=== PATIENT | male | born 1985 | race African-American/Black ===

== ENCOUNTER 2019-02-27 06:50 | Emergency (ER) | payer OTHER, SELFPAY ==
[2019-02-27 06:52] VITALS: BP 143/76; PULSE 72; RESP 16; TEMP 37.1; O2SAT 99; BMI 38.1
--- NOTE | 2019-02-27 07:32 | ED.VIS.LOWEX ---
History of Present Illness Chief Complaint: Wound Informant: Patient Onset: Weeks - Discomfort started 1 week ago. Presents with swelling and pain left prepatellar region. States he expressed pus. Reports concerned because of discoloration inferior and medial to the left pre-patella region and discomfort along the abductor canal. Context: Sudden Onset Timing: Continuous Quality of Pain: Dull Location: Left pre-patella Current Severity: Mild Maximum Severity: Moderate Worsened by: Pressure Relieved by: Nothing Associated Symptoms: Negative for: Parasthesia, Weakness, Loss of Funtion Narrative: Patient is a healthy 33-year-old male with no cervical medical problems and no history of allergies to medication who presents with pain and swelling left knee. He localizes the discomfort and swelling to the left prepatellar region. He states he expressed pus from the area today. He reports subjective fever with chills. He denies history rheumatic fever, murmur, SB he is concerned because of discomfort that he localizes left abductor canal region and discoloration inferior to the area of swelling medial proximal tibial region. E or IV drug use. Is not immune suppressed. He denies history of trauma. He has not done any type of activity or work on his knees. Tetanus Immunization: 5-10 years Prior similar symptoms: No Recent Illness/Hospitalization: No - Past Medical History (1) No significant past medical history Status: Acute Past Medical History - Allergies and Home Meds Allergies/Adverse Reactions: Allergies No Known Allergies Allergy (Verified 02/27/19 06:51) Primary Care Physician: Deepti Spence,Out of [NON-STAFF] - Prior records reviewed: No Past Medical History: None Surgical History: no surgical history Lives: Alone Smoking Status: Never smoker Drugs: None Review of Systems General: Reports: Chills, Fever, Subjective. Denies: Malaise, Sweats Cardiovascular: Denies: Chest pain, Palpitations, Heart racing Respiratory: Denies: Dyspnea, Dyspnea on exertion Gastrointestinal: Denies: Nausea, Vomiting Genitourinary: Denies: Dysuria, Hematuria, Frequency, -, - Musculoskeletal: Reports: Swelling - Left prepatellar region, Extremity Pain - Left knee. Denies: Myalgias, Arthralgias, Neck pain, Back pain, -, - Skin: Reports: Rash, Abscess, Wounds Neurological: Denies: Weakness, Parasthesia, Numbness Hematologic: Denies: Easy bruising, Easy bleeding Physical Exam Vital Signs/Narrative: Vital Signs Temp Pulse Resp BP Pulse Ox 02/27/19 06:52 98.7 F 72 16 143/76 H 99 Inital Vital Signs reviewed: Yes - Extremity Exam Left Pelvis: Negative for: Abrasion, Contusion, Deformity, Edema, Hematoma, Limited ROM, - - There is shotty tender left inguinal nodes on palpation Left Hip: Negative for: Abrasion, Contusion, Deformity, Edema, Hematoma, Limited ROM, - Left Femur: Negative for: Abrasion, Contusion, Deformity, Edema, Hematoma, Limited ROM, - - There is pain palpation along the abductor canal. There is no palpable mass or palpable cord. Left Knee: Negative for: Abrasion, Contusion, Deformity, Edema, Hematoma, Limited ROM, - - There is warmth, induration and fluctuant in the prepatellar region. There is no lymphangitis. There is no popliteal lymphadenopathy. Left Tib Fib: Negative for: Abrasion, Contusion, Deformity, Edema, Hematoma, Limited ROM, - - There is slight discoloration proximal medial left tibial region. Left Ankle: Negative for: Abrasion, Contusion, Deformity, Edema, Hematoma, Limited ROM, - Left Foot: Negative for: Abrasion, Contusion, Deformity, Edema, Hematoma, Limited ROM, - - DP and PT pulses are palpable. General: Well nourished, Well developed Head: Normocephalic, Atraumatic Eyes: Perrl, EOMI. Negative for: Pale conjunctiva Neck: - - Trachea is midline. Neck is supple. Cardiovascular: Regular rate, Regular rhythm, No murmurs, Normal S1, Normal S2 Respiratory: No distress, CTA bilaterally, Chest nontender Skin: Normal color, Rash - There is slight erythema left prepatellar region with either a subcutaneous abscess or free patella septic bursa. Neurological: Alert, Oriented x3, Cranial nerves II-XII grossly intact, Normal Strength, Normal Sensation. Negative for: Normal Gait Psychological: Normal affect Diagnostic/Tx/Re-eval Laboratory Results 02/27/19 02/27/19 07:20 07:20 WBC 8.6 RBC 5.32 Hgb 15.9 Hct 47.0 MCV 88.3 MCH 29.9 MCHC 33.8 RDW 12.9 RDW Differential 41.6 Plt Count 209 MPV 10.2 Immature Gran % (Auto) 0.200 Neut % (Auto) 64.9 Lymph % (Auto) 22.6 [place] % (Auto) 10.3 H Eos % (Auto) 1.7 Baso % (Auto) 0.3 Absolute Neuts (auto) 5.6 Absolute Lymphs (auto) 1.95 Total Counted Not Reportable Sodium 140 Potassium 4.0 Chloride 105 Carbon Dioxide 28.0 Anion Gap 7 BUN 12 Creatinine 1.33 H Estim Creat Clear Calc 79.74 Est GFR (MDRD) Af Amer 80 Est GFR (MDRD) Non-Af 66 BUN/Creatinine Ratio 9.0 L Glucose 104 Calcium 8.8 - Medical Decision Making Because patient complains of subjective fever and chills and symptoms have been greater than 1 week will obtain CBC, BMP. Patient was informed that treatment is incision and drainage. He asked questions regarding high I believed he needed incision and drainage. I explained to him why. He understands. Consent was obtained for I&D of subcutaneous abscess versus septic pre-patella bursa. Read procedure note. Patient's creatinine is elevated. He denies use of any supplements. 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 Since he does not a primary care physician he was referred to Dr. Mariza Perez. He has not seen orthopedic in town. He is referred to Dr. Munroe. Procedures Procedure(s): Patient was consented for I&D of prepatellar subcutis abscess versus prepatellar septic bursitis. Patient's questions were answered to his satisfaction. He signed consent form. Patient was prepped draped sterile manner. The area was anesthetized by local infiltration and field block. Incision was made using a 10 blade. Blunt dissection was undertaken. Significant amount of purulent material flowed from the incision site. The cavity was irrigated. Additional purulent material was expressed from the wound site. The cavity was irrigated again. 1/4 inch new gauze was placed as a wick. The incision site was dressed. He received first dose of antibiotic in the emergency department as well as opiate analgesia. He was discharged home with prescription for cephalexin, Bactrim and [place]. ED Disposition - Plan for ED Patient: Disposition: Home or Assisted Living Diagnosis: Septic prepatellar bursitis of left knee Instructions: ED Abscess IandD Prescriptions: Hydrocodone Bitart/Apap 5-325 [[place] 5MG-325MG] 1 tablet PO Q4H PRN PRN 2 Days #10 tablet PRN Reason: Pain Smz/Tmp Ds [Bactrim Ds] 1 tablet PO BID #14 tablet Cephalexin [Keflex] 500 mg PO 4X/DAY #28 capsule Referrals: [facility] Doctor,Out of [NON-STAFF] - Mariza Perez DO [STAFF PHYSICIAN] - 1-2 Weeks Alexander Avery DO [STAFF PHYSICIAN] - 2 Days for wound check Additional Instructions: If you are unable to be seen in 2 days for wound check please return to the emergency department for reevaluation.
[2019-02-27 07:37] LABS: Absolute Lymphocyte Count 1.95 X10^3/ul (0.83-4.51); Absolute Neutrophil Count 5.6 X10^3/uL (2.0-7.7); Basophil# 0.03 X10^3/uL; Basophil% 0.3 % (0-1); Eosinophil# 0.15 X10^3/uL; Eosinophils% 1.7 % (0-5); Hemoglobin 15.9 g/dl (13.0-16.5); Lymphocyte # 1.95 X10^3/ul (4.0); Lymphocyte % 22.6 % (19-41); Mean Corp Hgb Conc 33.8 g/gl (32-36); Mean Corpuscular Hgb 29.9 pg (27.0-32.0); Mean Corpuscular Volume 88.3 fL (80-94); Mean Platelet Vol. 10.2 fl (6.2-12.0); Monocyte# 0.89 X10^3/uL; Monocyte% 10.3 % (0-10); Neutrophil # 5.58 X10^3/uL (2.7-7.7); Neutrophil % 64.9 % (47-70); Platelet Count 209 K/mm3 (150-450); RBC Distribution Width CV 12.9 % (11.6-14.6); RBC Distribution Width SD 41.6 fl (35.1-43.9); Red Blood Count 5.32 M/mm3 (4.6-6.2); White Blood Count 8.6 K/mm3 (4.4-11.0)
[2019-02-27 07:42] LABS: POSITIVE COUNT NO; POSITIVE DIFFERENTIAL NO; POSITIVE MORPHOLOGY NO
[2019-02-27 07:55] LABS: Anion Gap 7 (5-15); BUN 12 mg/dL (7-18); Calcium,Total 8.8 mg/dL (8.5-10.1); Chloride 105 mmol/L (98-107); Creatinine, Serum 1.33 mg/dL (0.70-1.30); EST Glomerular Filtration Rate 66 mL/min (>60); Est Glom Filt Rate - Afr Amer 80 mL/min (>60); Estimated Creatinine Clearance 79.74 ml/min; Glucose 104 mg/dL (74-106); Sodium Level 140 mmol/L (136-145)
[2019-02-27] MEDS: Smz/Tmp Ds Tablet 1 TABLET PO (08:40)
[2019-02-27] MEDS: HYDROcodone Bitartrate/Apap 5/325 Tablet PO (08:40)
[2019-02-27] MEDS: Cephalexin 250 MG Capsule 500 MG PO (08:41)
[2019-02-27 09:00] VITALS: BP 136/78; PULSE 85; RESP 16; O2SAT 98
== END 2019-02-27 09:01 | disposition home or self-care (01) ==
PROVIDERS: Emergency Provider Emergency Medicine
DX: M70.42 Prepatellar bursitis, left knee (principal)
CPT/HCPCS: 27301; 10060; 80048; 85025; 99284

== ENCOUNTER 2019-03-01 17:00 | Emergency (ER) | payer OTHER, SELFPAY ==
[2019-03-01 17:01] VITALS: BP 139/72; PULSE 63; RESP 16; TEMP 37.1; O2SAT 99; BMI 38.4
--- NOTE | 2019-03-01 17:19 | US_ITS ---
STUDY: VENOUS DOPPLER ULTRASOUND - LEFT LOWER EXTREMITY REASON FOR EXAM: Male, 33 years old. Left leg swelling. TECHNIQUE: Ultrasound evaluation of the deep vein system to include mcdaniel-scale imaging and compression was performed. Mcdaniel-scale imaging and Doppler sonographic evaluation, including duplex spectral analysis and qualitative color flow sonography, was performed. COMPARISON: None. FINDINGS: Common Femoral Vein: Normal compression, spontaneity and augmentation. Normal color Doppler. Common Femoral Vein/Greater Saphenous Junction: Normal compression. Femoral Proximal: Normal compression. Femoral Middle: Normal compression, spontaneity and augmentation. Normal color Doppler. Femoral Distal: Normal compression, spontaneity and augmentation. Normal color Doppler. Popliteal Vein: Normal compression, spontaneity and augmentation. Normal color Doppler. Posterior Tibial Vein: Normal compression. Peroneal Vein: Normal compression. There is no demonstrated deep venous thrombosis. US/Venous Duplex Imag/Limited/Uni IMPRESSION: No sonographic evidence for deep venous thrombosis of the left common femoral, superficial femoral or popliteal veins. Electronically Signed: Viki Dash MD at 18:45 EDT , Service support ,
--- NOTE | 2019-03-01 18:37 | ED.DCSUM_ITS ---
- ER Visit Summary Date of Service: 03/01/19 Chief Complaint: Left knee wound History of Present Illness: The patient is a 33 M who was seen 2 days ago for swelling and pain to the left anterior knee. He had an I&D and packing placed for cutaneous abscess. Patient states the pain is improving. He has an appointment with orthopedics tomorrow. He still has pain in the medial thigh and lower leg and states his lower leg was swollen last evening. He feels the skin is slightly red. He states this was not adequately addressed on his last visit so he came back in. Physical Examination: Vital signs are unremarkable. Patient sitting upright in bed no acute distress. Left lower extremity examination reveals left anterior knee wound with packing in place. There is no surrounding fluctuance or drainage. He has mild muscular tenderness along the medial left thigh and lower leg. There is no significant edema at this time. There might be slight erythema to the skin. There is no tenderness at the joint line of the knee or evidence of effusion. Test Results: Venous ultrasound reveals no evidence of DVT. Emergency Department Course and Treatment: Test results discussed with the patient. He requested packing be removed. Anterior knee wound is cleansed and packing is removed. Dressing is applied. I encouraged patient to follow-up with orthopedics tomorrow as scheduled. Treatment Plan: [] Disposition: Discharge Impression: Left knee wound check with resolving infection This note was generated with [employer] dictation software. It may contain incorrect words, spelling, and punctuation that were not noted in review of the chart prior to signing ED Disposition - Plan for ED Patient: Disposition: Home or Assisted Living Instructions: ED Wound Care Referrals: Alexander Avery DO [STAFF PHYSICIAN] - Keep [facility] appointment
== END 2019-03-01 18:41 | disposition home or self-care (01) ==
PROVIDERS: Emergency Provider Emergency Medicine
DX: Z48.01 Encounter for change or removal of surgical wound dressing (principal); M79.89 Other specified soft tissue disorders
CPT/HCPCS: 93971; 99282

== ENCOUNTER 2020-02-08 06:53 | Emergency (ER) | payer OTHER, SELFPAY ==
[2020-02-08 06:54] VITALS: BP 131/78; PULSE 74; RESP 20; TEMP 36.9; O2SAT 98; BMI 36.9
[2020-02-08 06:56] VITALS: BP 131/78; PULSE 74; RESP 20; TEMP 36.9; O2SAT 98
--- NOTE | 2020-02-08 07:16 | ED.VIS.GEN ---
History of Present Illness Chief Complaint: Cough Informant: Patient Narrative: Patient states that a week ago last Thursday he developed some abdominal cramping and body aches. He also developed fever up to 102 as well as sore throat. He had nausea but no vomiting. States he has had some diarrhea like movements but not very often. Decreased p.o. on the current past week. On Thursday he developed runny nose cough. Nose is been mostly clear but now has had blood in it. Cough is nonproductive. He has had a relatively lack of appetite. He woke this morning with sweats and again with fever. Continues to have sore throat but states it is somewhat better. No rashes. He has been in urgent care twice initially diagnosed with flu second visit had a chest x-ray performed. This was reported as negative. Past Medical History - Allergies and Home Meds Allergies/Adverse Reactions: Allergies No Known Allergies Allergy (Verified 02/27/19 06:51) Primary Care Physician: David Jacob MD [STAFF PHYSICIAN] - (as needed for primary care) Surgical History: no surgical history Smoking Status: Never smoker Review of Systems General: Reports: Chills, Fever, Malaise, Sweats Eyes: Denies: Visual changes - bilaterally, Diplopia ENT: Reports: Rhinorrhea, Sore throat Cardiovascular: Denies: Chest pain, Palpitations Respiratory: Reports: Cough. Denies: Dyspnea, Dyspnea on exertion Gastrointestinal: Reports: Abdominal pain, Nausea, Diarrhea. Denies: Vomiting, Melena, Hematochezia Genitourinary: Denies: Dysuria, Hematuria, Frequency Musculoskeletal: Reports: Myalgias. Denies: Back pain, Extremity Pain Skin: Denies: Rash, Wounds Neurological: Reports: Headache. Denies: Weakness, Numbness Physical Exam Vital Signs/Narrative: Vital Signs Temp Pulse Resp BP Pulse Ox 02/08/20 06:56 98.4 F 74 20 H 131/78 H 98 02/08/20 06:54 98.4 F 74 20 H 131/78 H 98 Inital Vital Signs reviewed: Yes General: Well nourished, Well developed, No Acute Distress Head: Normocephalic, Atraumatic Eyes: Perrl, EOMI ENT: Moist mucous membranes, - - Friable anterior plexus mucosa with clear rhinorrhea scant blood noted. The posterior pharynx is erythematous Neck: Supple, Nontender, - - Anterior and posterior lymph nodes mildly tender. Negative for: No lymphadenopathy - Frequent dry cough especially with deep inspiration Cardiovascular: Regular rate, Regular rhythm, No murmurs Respiratory: No distress, CTA bilaterally, Chest nontender Abdomen: Soft, Nontender, Nondistended, Normal bowel sounds Back: Nontender, Normal Inspection Extremities: Nontender, No edema Skin: Normal color, No rash Neurological: Alert, Oriented x3, Cranial nerves II-XII grossly intact, Normal Strength, Normal Sensation Psychological: Normal affect, Normal Mood Diagnostic/Tx/Re-eval - Medical Decision Making Patient's white blood cell count is still normal in the differential includes a higher amount of monocytes and lymphocytes. Monospot is negative. Influenza negative and rapid strep is negative. His chest x-ray was obtained and reviewed. Radiologist comments include minimal hazy airspace disease but no focal airspace opacities. Patient is now had fever for the start of his eighth day. He still has pharyngeal erythema and cough. Will place him on azithromycin and given a dose of oral Decadron. Continued oral hydration and rest. Return if worsening or concerns follow-up with primary care ED Disposition - Plan for ED Patient: Disposition: Home or Assisted Living Diagnosis: Pharyngitis, Bronchitis Instructions: BRONCHITIS, Antiobiotic Treatment (Adult) Prescriptions: Azithromycin 500 mg PO DAILY #5 tab Transmission Status: Pending to [facility] Referrals: David Jacob MD [STAFF PHYSICIAN] - (as needed for primary care)
--- NOTE | 2020-02-08 07:45 | RAD_ITS ---
STUDY: X-RAY CHEST REASON FOR EXAM: Male, 34 years old. COUGH AND FEVER; -- DX WITH FLU 1 WEEK AGO TECHNIQUE: PA and lateral views of the chest. COMPARISON: September 06, 2015. FINDINGS: Cardiac silhouette unremarkable. Increased bronchovascular markings. Aorta unremarkable. No focal patchy airspace opacities. No pleural effusions. Minimal hazy airspace disease. Upper abdomen unremarkable. Osseous structures intact. No pneumothorax. RAD/Chest PA and Lateral IMPRESSION: Reactive airway disease/viral infection Mild congestion Electronically Signed: David Bradshaw DO at 8:16 EDT Tel , Service support ,
[2020-02-08 07:51] LABS: Absolute Neutrophil Count 2.7 X10^3/uL (2.0-7.7); Basophil# 0.07 X10^3/uL; Eosinophils% 2.8 % (0-5); Hemoglobin 15.8 g/dL (13.0-16.5); Lymphocyte % 46.3 % (19-41); Mean Corp Hgb Conc 32.2 g/dL (32-36); Mean Corpuscular Hgb 28.7 pg (27.0-32.0); Mean Corpuscular Volume 89.1 fL (80-94); Mean Platelet Vol. 9.4 fl (6.2-12.0); Monocyte# 0.78 X10^3/uL; Monocyte% 10.9 % (0-10); NRBC Flagged by Analyzer 0 % (0-5); Neutrophil # 2.67 X10^3/uL (2.7-7.7); Neutrophil % 37.5 % (47-70); POSITIVE MORPHOLOGY YES; Platelet Count 223 K/mm3 (150-450); RBC Distribution Width CV 13.1 % (11.6-14.6); RBC Distribution Width SD 42.8 fl (35.1-43.9); White Blood Count 7.1 K/mm3 (4.4-11.0)
[2020-02-08 07:53] LABS: Anion Gap 3 (5-15); BUN 11 mg/dL (7-18); BUN/Creat Ratio 8.8 RATIO (10-20); Calcium,Total 8.6 mg/dL (8.5-10.1); Chloride 106 mmol/L (98-107); Creatinine, Serum 1.25 mg/dL (0.70-1.30); EST Glomerular Filtration Rate 70 mL/min (>60); Est Glom Filt Rate - Afr Amer 85 mL/min (>60); Estimated Creatinine Clearance 84.05 ml/min; Glucose 98 mg/dL (74-106); Sodium Level 140 mmol/L (136-145)
[2020-02-08 07:55] LABS: Differential Indicated SCAN CRITERIA MET
[2020-02-08 08:05] LABS: Internal QC Validated? YES +Cl - CLEAR BKGD; Monotest Negative (Negative)
[2020-02-08 08:22] LABS: Atypical Lymphocyte 2+ %; Platelet Estimate ADEQUATE (ADEQ); Red Cell Morphology NORM C+C NORMAL (NORM C&C)
--- NOTE | 2020-02-08 08:26 | ED.RN ---
Addendum entered by Meggan Shay 02/08/20 08:27: error, documentation regarding wedding ring on wrong pt. Original Note: Wedding ring given to Roni, who is in the waiting room.
[2020-02-08] MEDS: dexAMETHasone 10 MG/ML Vial PO.IVFORM (08:38)
[2020-02-08 08:42] VITALS: PULSE 97; RESP 18; O2SAT 97
[2020-02-09 10:02] LABS: Pathologist Review Reviewed
--- NOTE | 2020-02-10 09:57 | ED.RN ---
Lab reported positive strep. Dr Stevenson made aware. No need for any additional prescriptions. Pt was notified via phone of positive strep and informed of the importance to complete entire prescription. Pt verbalized understanding and reports he is feeling much better.
== END 2020-02-08 08:43 | disposition home or self-care (01) ==
PROVIDERS: Emergency Provider Emergency Medicine
DX: J40 Bronchitis, not specified as acute or chronic (principal); J02.9 Acute pharyngitis, unspecified; R19.7 Diarrhea, unspecified
CPT/HCPCS: 71046; 80048; 85025; 86308; 87077; 87804; 87880; 99284; A4216

== ENCOUNTER 2021-05-16 11:07 | Emergency (ER) | payer MEDICAID, SELFPAY ==
[2021-05-16 11:08] VITALS: BP 130/85; PULSE 110; RESP 18; TEMP 36.2; O2SAT 97; BMI 39.1
--- NOTE | 2021-05-16 11:15 | EDS_ITS ---
HPI History of Present Illness Chief Complaint: Lower Extremity Injury Informant: patient Onset/Context/Timing Onset: Today Timing: Continuous Current Severity: Moderate Maximum Severity: Moderate Narrative Narrative: The patient is a 36-year-old male no significant medical history the presents to the emergency department with left heel injury. Patient states that he had a partially torn Achilles when he is in college. He did not require surgery. He did extensive rehab. States has been doing well. Today, he was running with his daughter. They were running up a hill. He states he planted and felt something pop in the back of his leg and fell to the ground. Since that time, he had difficulty flexing at the ankle. He did not strike his head. He denies other injury. Prior similar symptoms: Yes Recent Illness/Hospitalization: No PFSH PFSH Home Medications hydrocodone-acetaminophen 1 tab PO Q6H PRN PRN 3 Days #10 tablet 05/16/21 [Rx Last Taken Unknown] Allergy/AdvReac Type Severity Reaction Status Date / Time No Known Allergies Allergy Verified 05/16/21 11:07 Social History Smoking Status: Never smoker ROS ROS ED Constitutional Constitutional ED: Denies chills or fever(s) Eyes Eyes: Denies blurry vision or change in vision ENT ENT ED: Denies ear pain or sore throat Cardiovascular Cardiovascular: Denies chest pain or palpitations Respiratory/Chest Respiratory/Chest: Denies cough, dyspnea or dyspnea on exertion Gastrointestinal Gastrointestinal: Denies abdominal pain, nausea or vomiting Genitourinary Genitourinary ED: Denies dysuria or urinary frequency Musculoskeletal Musculoskeletal: Denies arthralgias or myalgias Integumentary Denies rash Neurologic Neurologic: Denies headache(s) or paresthesias Psychiatric Psychiatric: Denies anxiety or depression Endocrine Endocrinology: Denies polydipsia or polyuria Allergic/Immunologic Allergic/Immunologic ED: Denies urticaria EXAM Physical Exam Const Vital Signs: 05/16/21 11:08 Temperature 97.1 F L Temperature Source Temporal Pulse Rate 110 H Respiratory Rate 18 Blood Pressure 130/85 H Blood Pressure Mean 100 Pulse Ox 97 Oxygen Delivery Method Room Air Positive well nourished and well developed General Appearance ED: well developed HEENT Reports normocephalic, head/scalp atraumatic and moist mucous membranes Eyes PERRL and EOMs intact bilaterally Neck no lymphadenopathy and supple General: Negative for tenderness Chest Wall inspection of chest normal Resp normal respiratory effort and clear to auscultation bilaterally Cardio regular rate, regular rhythm and no murmurs GI normal to inspection, nondistended, normoactive bowel sounds Palpation: Negative for tender, guarding or rebound tenderness present Back/Spine no CVA tenderness Cervical Spine: Negative for cervical spine tenderness Thoracic Spine / Upper Back: Negative for thoracic spinal tenderness Extremity normal to inspection Extremity Narrative: Patient does have mild tenderness along the insertion of the Achilles. There is no definitive disruption. I am able to squeeze the calf and recreate some plantar flexion of the foot. General Extremety ED: Negative for tenderness Neuro oriented x3 and CN's II-XII intact bilaterally Neuro Narrative: No focal deficits appreciated. Sensorium / Orientation: alert Psych mental status grossly normal Skin no rashes or lesions noted, no wounds and skin turgor normal MDM MDM MDM Narrative Medical decision making narrative: Patient presents with pain in his Achilles tendon. He is still able to dorsiflex and does have some plantar flexion with compression. He has a history of partial rupture. I did obtain plain films. These are reviewed by both myself and the radiologist. There is no evidence of fracture dislocation of the ankle joint. Clinically, I do feel that he likely has a partial rupture. I am going to place him in a boot orthosis, given cru tches, and counseled him on being strict nonweightbearing as he could take a partial rupture and a complete rupture. He is comfortable with this plan of care. He will be given outpatient orthopedic follow-up and will be discharged home. Impression 1. Partial rupture left Achilles Discharge Plan Triage Chief Complaint: Lower Extremity Injury ED Provider: Nile Adorno Dx/Rx/DC Orders Instructions: ED Tendon Rupture Achilles Prescriptions: New hydrocodone-acetaminophen [hydrocodone-acetaminophen] 1 TABLET tablet 1 tab PO Q6H PRN PRN (Reason: Pain) 3 Days Qty: 10 RF: 0 Primary Care Provider: Care Physician,No Primary Referrals: Alexander Avery DO [STAFF PHYSICIAN] - 1-2 Days if not improving Care Physician,No Primary [Primary Care Provider] -
--- NOTE | 2021-05-16 11:30 | RAD_ITS ---
STUDY: X-RAY - LEFT ANKLE REASON FOR EXAM: Male, 36 years old. Fall. Pain. TECHNIQUE: 3 view(s) of the ankle. COMPARISON: None. FINDINGS: Normal visualized distal tibia and fibula. Normal medial and lateral malleoli. Normal tibiotalar articulation and ankle mortise. Normal visualized talus and calcaneus. The visualized subtalar, talonavicular, calcaneocuboid and tarsal articulations are normal. The soft tissue structures are unremarkable. RAD/Ankle min 3 Views IMPRESSION: Normal x-ray examination of the ankle. Electronically Signed: Valerio Soria MD at 12:18 EDT , Service support ,
== END 2021-05-16 12:28 | disposition home or self-care (01) ==
LOC: ED 11:52
PROVIDERS: Emergency Provider Emergency Medicine
DX: S86.012A Strain of left Achilles tendon, initial encounter (principal); X58.XXXA Exposure to other specified factors, initial encounter; Y93.02 Activity, running; Y92.9 Unspecified place or not applicable
CPT/HCPCS: 73610; 99284

== ENCOUNTER 2021-10-17 07:03 | Emergency (ER) | payer OTHER, MEDICAID, SELFPAY ==
[2021-10-17 07:04] VITALS: BP 132/70; PULSE 81; RESP 18; TEMP 36.3; O2SAT 98; BMI 41.0
--- NOTE | 2021-10-17 07:13 | EKG12_ITS ---
Test Reason : NUMBNESS Blood Pressure : / mmHG Vent. Rate : 064 BPM Atrial Rate : 064 BPM P-R Int : 130 ms QRS Dur : 086 ms QT Int : 404 ms P-R-T Axes : 019 -15 005 degrees QTc Int : 416 ms Normal sinus rhythm Normal ECG Confirmed by SANTI AYON, VLADIMIR ([id number]), cork grinder OTONIEL DUMONT ([id number]) on 10/18/2021 1:54:56 P M Referred By: DIANE Confirmed By:VIOLETA HANCOCK MD
--- NOTE | 2021-10-17 07:14 | EX.ED.DYSGE1 ---
HPI History of Present Illness Chief Complaint: Numb/Ting Narrative Narrative: Patient presents with numbness and tingling in his fourth and fifth digit and pain in his arm from the elbow down on the ulnar side. This started today when he woke up. He has no chest pain or shortness of breath he has no shoulder pain. He has no upper back pain. No neck pain. No cough or congestion. He is complaining of 2 to 3-month history of bilateral paraspinal lumbar back pain which is worse in the morning and worse with movement. No urinary symptoms, no testicular pain. He has no abdominal pain nausea vomiting or diarrhea. No pain with urination or bowel movement. PFSH PFSH Home Medications prednisone 50 mg PO DAILY #5 tab 10/17/21 [Rx Last Taken Unknown] Allergy/AdvReac Type Severity Reaction Status Date / Time No Known Allergies Allergy Verified 10/17/21 07:03 Social History Smoking Status: Never smoker ROS ROS ED ROS Narrative Past medical history: None Medications: None Social history: Noncontributory Review of systems: All systems negative except as indicated General: No fever Eyes: No visual changes ENT: No upper airway congestion, normal voice Neck: No neck pain Cardiovascular: No chest pain Respiratory: No shortness of breath or cough Gastrointestinal: No abdominal pain, nausea vomiting or diarrhea Genitourinary: No dysuria Musculoskeletal: Left arm pain as in HPI Back: As in HPI Skin: No rash Neurological: No memory loss, confusion or any focal weakness Psych: No recent behavioral changes Hematologic: No easy bleeding or easy bruising EXAM Physical Exam Narrative Exam Narrative: Physical exam General: Well nourished, Well developed, No Acute Distress Head: Normocephalic, Atraumatic Eyes: Conjunctiva not pale ENT: Moist mucous membranes Neck: Supple, Nontender, No lymphadenopathy Cardiovascular: Regular rate, Regular rhythm Respiratory: No distress, CTA bilaterally Abdomen: Soft, Nontender, Nondistended Back: Patient does not have CVA tenderness his pain is lower in the paraspinal muscle region. It is bilateral. No rash or deformity seen. He seems comfortable when I palpate in that region. No spinal tenderness on palpation. Extremities: Patient has normal strength and sensation in his left upper extremity, I can recreate his paresthesias by pressing in the ulnar groove of the elbow. He is describing an ulnar distribution of symptoms down his forearm and into his fourth and fifth digits. Skin: Normal color, No rash Neurological: Alert, Normal Strength, Normal Sensation Psychological: Normal affect Const Vital Signs: 10/17/21 07:04 Temperature 97.4 F L Temperature Source Temporal Pulse Rate 81 Respiratory Rate 18 Blood Pressure 132/70 H Blood Pressure Mean 90 Pulse Ox 98 Oxygen Delivery Method Room Air MDM MDM MDM Narrative Medical decision making narrative: Patient has an obvious ulnar radiculopathy but I did blood work to make sure there is no cardiac component. I also did a lumbar spine x-ray which is unremarkable. I had a long conversation about what he may be doing to cause the ulnar neuropathy, we went over any kind of repetitive motion with the elbow or any other kind of trauma and he does not know any. I urged him to be mindful of what he is doing in the next few days the could cause this in the meantime I believe it is reasonable to put him on a short dose of steroids. As far as the back this is likely paraspinal strain, he can follow-up with PCP or get physical therapy for this. Lab Data Labs: Laboratory Results - last 24 hr 10/17/21 10/17/21 07:21 07:21 WBC 5.6 RBC 5.49 Hgb 15.8 Hct 47.3 MCV 86.2 MCH 28.8 MCHC 33.4 RDW Std Deviation 38.6 RDW Coeff of Gala 12.3 Plt Count 241 MPV 10.0 Immature Gran % (Auto) 0.400 Neut % (Auto) 44.8 L Lymph % (Auto) 42.1 H [place] % (Auto) 9.9 Eos % (Auto) 2.3 Baso % (Auto) 0.5 Absolute Neuts (auto) 2.5 Absolute Lymphs (auto) 2.35 Nucleated RBC % 0 Sodium 138 Potassium 3.7 Chloride 106 Carbon Dioxide 27.0 Anion Gap 5 BUN 16 Creatinine 1.29 Estim Creat Clear Calc 79.93 Est GFR (MDRD) Af Amer 81 Est GFR (MDRD) Non-Af 67 BUN/Creatinine Ratio 12.4 Glucose 107 H Calcium 8.8 Total Bilirubin 0.60 AST 16 ALT 29 Alkaline Phosphatase 88 Troponin I High Sens 6 Total Protein 7.8 Albumin 3.6 Globulin 4.2 Albumin/Globulin Ratio 0.9 Radiography Diagnostic Testing: Clinical Impression(s) from Imaging Studies Lumbar Spine X-Ray 10/17/21 07:52 IMPRESSION: Loss of the normal lumbar lordosis. Mild degree of disc space narrowing at the L5-S1 level. 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 Prescriptions: New prednisone 50 mg tablet 50 mg PO DAILY Qty: 5 RF: 0 Primary Care Provider: Care Physician,No Primary Referrals: Care Physician,No Primary [Primary Care Provider] - 2 Days Disposition Disposition: Home, Self Care
[2021-10-17 07:31] LABS: Absolute Lymphocyte Count 2.35 X10^3/uL (0.83-4.51); Absolute Neutrophil Count 2.5 X10^3/uL (2.0-7.7); Basophil# 0.03 X10^3/uL; Basophil% 0.5 % (0-1); Eosinophil# 0.13 X10^3/uL; Eosinophils% 2.3 % (0-5); Hematocrit 47.3 % (40-54); Hemoglobin 15.8 g/dL (13.0-16.5); Lymphocyte # 2.35 X10^3/ul (0.83-4.51); Lymphocyte % 42.1 % (19-41); Mean Corp Hgb Conc 33.4 g/dL (32-36); Mean Corpuscular Hgb 28.8 pg (27.0-32.0); Mean Corpuscular Volume 86.2 fL (80-94); Monocyte# 0.55 X10^3/uL; Monocyte% 9.9 % (0-10); NRBC Flagged by Analyzer 0 % (0-5); Neutrophil % 44.8 % (47-70); Platelet Count 241 K/mm3 (150-450); RBC Distribution Width CV 12.3 % (11.6-14.6); RBC Distribution Width SD 38.6 fl (35.1-43.9); Red Blood Count 5.49 M/mm3 (4.6-6.2); White Blood Count 5.6 K/mm3 (4.4-11.0)
--- NOTE | 2021-10-17 07:52 | RAD_ITS ---
STUDY: X-RAY - LUMBAR SPINE REASON FOR EXAM: Male, 36 years old. Chronic back pain. TECHNIQUE: 3 view(s) of the lumbar spine were obtained. COMPARISON: None FINDINGS: There is straightening of the normal lumbar lordosis. There is no substantial scoliosis. There is a normal alignment of the vertebrae. Normal vertebral bodies and endplates. Mild degree of this space narrowing at the L5-S1 level. The soft tissue structures are unremarkable. RAD/Lumbar Spine 2 or 3 Views IMPRESSION: Loss of the normal lumbar lordosis. Mild degree of disc space narrowing at the L5-S1 level. Electronically Signed: Valerio Soria MD at 8:22 EST , Service support ,
[2021-10-17 07:53] LABS: ALB/GLOB Ratio 0.9 RATIO (0.9-2.4); AST(SGOT) 16 U/L (15-37); Alanine Aminotransfer ALT/SGPT 29 U/L (16-61); Albumin, Serum 3.6 g/dL (3.2-5.0); Alkaline Phosphatase 88 U/L (45-117); Anion Gap 5 (5-15); BUN 16 mg/dL (7-18); BUN/Creat Ratio 12.4 RATIO (10-20); Calcium,Total 8.8 mg/dL (8.5-10.1); Chloride 106 mmol/L (98-107); Creatinine, Serum 1.29 mg/dL (0.70-1.30); EST Glomerular Filtration Rate 67 mL/min (>60); Est Glom Filt Rate - Afr Amer 81 mL/min (>60); Estimated Creatinine Clearance 79.93 ml/min; Globulin 4.2 g/dL (2.2-4.2); Glucose 107 mg/dL (74-106); Potassium 3.7 mmol/L (3.5-5.1); Protein, Total 7.8 g/dL (6.4-8.2); Sodium Level 138 mmol/L (136-145); Troponin-I HS 6 pg/mL (3.0-78.0)
[2021-10-17 08:37] VITALS: BP 131/88; PULSE 68; RESP 16; O2SAT 97
== END 2021-10-17 08:38 | disposition home or self-care (01) ==
PROVIDERS: Emergency Provider Emergency Medicine
DX: G62.9 Polyneuropathy, unspecified (principal); M54.50 Low back pain, unspecified; Z79.52 Long term (current) use of systemic steroids
CPT/HCPCS: 72100; 80053; 84484; 85025; 93005; 99285; A4216

== ENCOUNTER 2022-05-04 14:59 | Emergency (ER) | payer OTHER, MEDICAID, SELFPAY ==
[2022-05-04 15:00] VITALS: BP 156/84; PULSE 81; RESP 16; TEMP 36.8; O2SAT 97; BMI 41.3
--- NOTE | 2022-05-04 15:11 | EDS_ITS ---
HPI History of Present Illness Chief Complaint: Upper Extremity Injury Narrative Narrative: Developed left shoulder pain after working out 4 days ago, it is improving however its not fully gone away. He has most of his pain when he abduction greater than 90 degrees. No back pain, no chest pain. 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 Head: Normocephalic, Atraumatic Neck: No C-spine tenderness Cardiovascular: Normal distal pulses Back: Nontender, Normal Inspection. Extremities: Left deltoid tenderness, however most of his pain is with abduction greater than 90 degrees, he has mild pain when he puts his arm behind his back. Otherwise normal strength and sensation. Skin: No abrasions, no lacerations Neurological: Normal strength and sensation Const Vital Signs: 05/04/22 15:00 Temperature 98.2 F Temperature Source Temporal Pulse Rate 81 Respiratory Rate 16 Blood Pressure 156/84 H Blood Pressure Mean 108 Pulse Ox 97 Oxygen Delivery Method Room Air MDM MDM MDM Narrative Medical decision making narrative: Patient has a rotator cuff injury, however I believe it is tendinitis, I taught her some stretching exercises and rehab exercises, otherwise he can take Motrin or Naprosyn as needed. Discharge Plan Triage Chief Complaint: Upper Extremity Injury ED Provider: David Dang Dx/Rx/DC Orders Clinical Impression: Acute shoulder pain, Injury of left rotator cuff Instructions: External Rotation Shoulder Prescriptions: No Action NK RF: 0 Primary Care Provider: Giselle Milan Referrals: Giselle Milan MD [Primary Care Provider] - 2 Days Disposition Disposition: Home, Self Care
[2022-05-04 15:24] VITALS: BP 103/84; PULSE 79; RESP 16; O2SAT 98
== END 2022-05-04 15:27 | disposition home or self-care (01) ==
LOC: ED 15:24
PROVIDERS: Emergency Provider Emergency Medicine; PCP Internal Medicine; Visit Provider Emergency Medicine
DX: S46.002A Unspecified injury of muscle(s) and tendon(s) of the rotator cuff of left shoulder, initial encounter (principal); X58.XXXA Exposure to other specified factors, initial encounter
CPT/HCPCS: 99282

== ENCOUNTER → 2022-05-06 | Outpatient (CLI) | payer OTHER, MEDICAID, SELFPAY ==
[2022-05-06 16:34] LABS: Absolute Lymphocyte Count 1.82 X10^3/uL (0.83-4.51); Absolute Neutrophil Count 3.6 X10^3/uL (2.0-7.7); Basophil# 0.05 X10^3/uL; Basophil% 0.8 % (0-1); Eosinophils% 1.6 % (0-5); Hematocrit 46.4 % (40-54); Hemoglobin 15.1 g/dL (13.0-16.5); Lymphocyte # 1.82 X10^3/ul (0.83-4.51); Lymphocyte % 29.7 % (19-41); Mean Corp Hgb Conc 32.5 g/dL (32-36); Mean Corpuscular Hgb 28.7 pg (27.0-32.0); Monocyte# 0.49 X10^3/uL; NRBC Flagged by Analyzer 0 % (0-5); Neutrophil # 3.62 X10^3/uL (2.7-7.7); Neutrophil % 59.2 % (47-70); Platelet Count 279 K/mm3 (150-450); RBC Distribution Width CV 12.7 % (11.6-14.6); RBC Distribution Width SD 41.1 fl (35.1-43.9); Red Blood Count 5.27 M/mm3 (4.6-6.2); White Blood Count 6.1 K/mm3 (4.4-11.0)
[2022-05-06 17:08] LABS: Hemoglobin A1c 5.8 % (3.8-5.6)
[2022-05-06 17:14] LABS: Erythrocyte Sedimentation Rate 38 mm/hr (0-20)
[2022-05-06 17:16] LABS: Cholesterol 198 mg/dL (200); High Density Lipoprotein 32 mg/dL; Triglycerides 172 mg/dL; Very Low Density Lipoprotein 34 mg/dL (5-40)
== END | disposition home or self-care (01) ==
LOC: BIMLAB 15:43
PROVIDERS: PCP Internal Medicine; Referring Provider Internal Medicine; Visit Provider Internal Medicine
DX: R51.9 Headache, unspecified (principal); E66.01 Morbid (severe) obesity due to excess calories; I10 Essential (primary) hypertension
CPT/HCPCS: 36415; 80061; 83036; 85025; 85652; 86140

== ENCOUNTER → 2022-05-19 | Outpatient (CLI) | payer OTHER, MEDICAID, SELFPAY ==
[2022-05-19 17:12] LABS: Erythrocyte Sedimentation Rate 22 mm/hr (0-20)
[2022-05-19 20:18] LABS: CRP < 2.90 mg/L (0.0-3.0)
== END | disposition home or self-care (01) ==
LOC: BIMLAB 15:36
PROVIDERS: PCP Internal Medicine; Referring Provider Internal Medicine; Visit Provider Internal Medicine
DX: R51.9 Headache, unspecified (principal)
CPT/HCPCS: 36415; 85652; 86140

== ENCOUNTER → 2022-07-08 | Outpatient (CLI) | payer OTHER, MEDICAID, SELFPAY | END | disposition home or self-care (01) | LOC: SL 09:12 | PROVIDERS: PCP Internal Medicine; Referring Provider Internal Medicine; Visit Provider Internal Medicine | DX: G47.10 Hypersomnia, unspecified (principal) | CPT/HCPCS: 95806 ==

== ENCOUNTER 2022-07-17 10:19 | Outpatient (RCR) | payer OTHER, MEDICAID, SELFPAY ==
--- NOTE | 2022-07-17 11:29 | HP.PTEVAL ---
Patient's Visit Information ASHLIE WEAVER is a 37 year old M referred to Physical Therapy by Dr. Renny Perez DPM with a diagnosis of WENDIE ACHILLES TENDINITIS. Date of Evaluation: 07/17/22 Physical Therapist: Ale Mcconnell PT, Cert MDT - Visit Plan Frequency: 2-3x /Week Duration: 4-6 Weeks Plan: DO NOT INCREASE SX'S WITH EX. MAY BENEFIT FROM US. ANKLE ECCENTRICS. WENDIE LE ROM, STRETCHING AND STRENGTHENING. HEP INSTRUCTION. CONSIDER AQUATIC THERAPY. PATIENT ONLY AGREEABLE TO 2X'S A WK AT THIS TIME. WILL RE-ASSESS AFTER 4 WKS OR SOONER IF NEEDED. 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 Present symptoms: WENDIE ACHILLES PAIN. PAIN UP INTO WENDIE CALVES WELL. Present since: CHRONIC -. Pain Scale: WORST 8/10, LEAST 4/10. Currently: 610. Commenced as a result of: PARTIAL TEAR OF RIGHT ACHILLES PLAYING BASKETBALL IN COLLEGE TREATED WITH PT. NO SURGERY. NEVER FULLY RECOVERED. JOGGING LAST SUMMER GOING UP [place] AND FELT L ACHILLES STRETCH REALLY BAD AND FELL TO THE GROUND. BOOT X 6-8 WEEKS AND DOES NOT FEEL IT EVER FULLY RECOVERED. APRIL 26 TO MAY WAS JOGGING ON TREADMILL ABOUT 2 MILES A DAY AND PAIN IS ALWAYS THERE BUT DIDN'T SEEM TO MAKE ACHILLES PAIN WORSE. IF OVER DOES IT WITH WORKING OUT PLUS BASKETBALL THEN GETS WORSE. THE MOST PAIN IS IF HE TWEAKS IT LIKE ROLLING HIS ANKLES. 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 Worse: THE FASTER I WALK THE MORE IT HURTS. TWEAKING IT, BASKETBALL, BEING ON FEET, NORMAL DAILY WALKING. Better: SITTING AND LYING. Disturbed sleep: NO. Previous history/Previous treatment: PAIN IS WORSE THE LAST 2 YEARS. THEY HURT JUST TO WALK AROUND WITH AVG OF 6-/10. SEE ABOVE. NO INJECTIONS. NO SURGERY. NO CURRENT PAIN MEDICINE. Bowel or Bladder Dysfunction: NO. Accidents: NO. Unexplained weight loss: NO. Imagin MRI R ACHILLES. RECENT X-RAYS ARE UNREMARKABLE. PMH/Recent major surgery: UNREMARKABLE. OTHER: PATIENT REPORTS HE DECLINED THE NIGHT SPLINT AND SHOE INSERTS RECOMMENDED BY HIS DOCTOR BECAUSE HE WANTS TO TRY PT FIRST. - Objective THIS PATIENT AMBULATES INDEP'LY INTO PT WITH WENDIE ANKLE PRONATION AND DECREASED CADANCE. HE HAS TENDERNESS WITH PALAPATION OF WENDIE ACHILLES TENDONS AND MEDIAL ANKLES. WENDIE ANKLE STRENGTH IS 5/5 BUT APPROX 20 DECREASED ANKLE ROM ALL PLANES. LUMBAR ROM IS WFL AND PATIENT DENIES PAIN WITH TESTING. WENDIE LE LIGHT TOUCH SENSATION IS GROSSLY INTACT AND SYMMETRICAL. TREATMENT: EDUCATED PATIENT ON DX AND POSSIBLE BENEFITS OF USING NIGHT SPLINT AND SHOE INSERTS IN CONJUNCTION WITH PT. INITIATED HEP. HEP INSTRUCTION: Eccentric Calf Raises - Repeat 10 Times, Complete 3 Sets, Perform 1 Times a Day. WRITTEN INSTRUCITON PROVIDED. - Balance/Special Test Scores Lower Extremity Functional Score: 50 - Goals Goal 1:: DECREASE C/O WENDIE ACHILLES PAIN Goal Time Frame: 4-6 Weeks Goal 2:: IMPROVE STANDING, WALKING, ADL AND RECREATIONAL FUNCTION/TOLERANCE Goal Time Frame: 4-6 Weeks Goal 3:: PATIENT WILL BE INDEP WITH A HEP FOR FURTHER IMPROVEMENT ONCE FORMAL PHYSICAL THERAPY CONCLUDES. Goal Time Frame: 4-6 Weeks - Anticipated Interventions Patient/Client Instruction: Educate patient on: Condition, Plan of Care, Risk Factors For the Purpose of:: To improve self management Therapeutic Exercise to Include: Strength training, Flexibilty training, Neuromotor development, In an aquatic setting For the Purpose of:: To decrease pain, To increase ROM, To improve muscle performance and motor function, To increase tolerance to activity/condition/position, To improve ability of physical actions for home/community/work/leisure, To improve gait and locomotor functions Ultrasound (thermal/non thermal): Yes For the Purpose of:: To decrease pain, To improve nutrient delivery to tissue Thank you for the opportunity to evaluate your patient. For Medicare and Medicare HMO plans, please review the plan of care and approve it. It will need to be FAXED BACK to us at [phone] for Medicare purposes. For Medicare only, by signing this I certify the plan of care. Please let me know if there are questions or concerns regarding this plan of care. Physician Signature: Date:
--- NOTE | 2022-11-28 08:42 | HP.PT.NRP ---
ASHLIE WEAVER was seen in my office for initial evaluation on 07/17/22. The following Plan of Care was established for this patient: Initial Frequency: 2-3x /Week Initial Duration: 4-6 Weeks Patient/Client Instruction: Educate patient on: Condition, Plan of Care, Risk Factors For the Purpose of:: To improve self management Therapeutic Exercise to Include: Strength training, Flexibilty training, Neuromotor development, In an aquatic setting For the Purpose of:: To decrease pain, To increase ROM, To improve muscle performance and motor function, To increase tolerance to activity/condition/position, To improve ability of physical actions for home/community/work/leisure, To improve gait and locomotor functions Ultrasound (thermal/non thermal): Yes For the Purpose of:: To decrease pain, To improve nutrient delivery to tissue This patient was last seen in our office . Pertinent comments regarding their Physical therapy will appear below: Patient attended Evaluation only. At this point I will be discontinuing this patient from physical therapy. I would be happy to see this patient again in the future if found appropriate by the physician. Thank you! Ale Mcconnell, PT, Cert MDT Balance/Gait/Functional tests - Balance/Special Test Scores Lower Extremity Functional Score: 50
== END 2022-07-17 19:00 | disposition home or self-care (01) ==
LOC: PT 10:19
PROVIDERS: PCP Internal Medicine; Referring Provider Podiatrist; Visit Provider Podiatrist
DX: M76.61 Achilles tendinitis, right leg (principal); M76.62 Achilles tendinitis, left leg
CPT/HCPCS: 97162; 97530

== ENCOUNTER 2023-12-18 19:08 | Emergency (ER) | payer OTHER, SELFPAY ==
[2023-12-18 19:10] VITALS: BP 155/89; PULSE 67; RESP 16; TEMP 35.6; O2SAT 100; BMI 42.6
[2023-12-18 19:12] VITALS: BP 155/89; PULSE 67; RESP 16; TEMP 35.6; O2SAT 100
--- OUTSIDE RECORDS SUMMARY | 2023-12-18 19:32 | XMS RPT_ITS | CCD ---
Author Name Unknown Address [id number] [place] [address] Organization [facility] Care Team Providers Care Hog Slaughterer Name Role Phone Unavailable Primary Care Provider UnavailGiselle Leonard MD Primary Care Provider 1([phone]) Giselle Otero MD Primary Care Provider 1(02 26) GISELLE OTERO Primary Care Unavailable CONCEPCION OTEROBE Mumtaz Primary Care Unavailable MICHAEL VILLANUEVA Referring Unavailable HUMAE EFEWONGBE B Primary Care Unavailable SARABJIT OTEROEWONGBE Mumtaz Primary Care Unavailable BRANDEN EFEWONGBE Mumtaz Primary Care Unavailable Medications Current Medications Medication Drug Class(es) Dates Sig (Normalized) Sig (Original) levoFLOXacin 750 mg oral tablet (1 source) Quinolone Antimicrobial Start: 05-04-2023 End: 05-11-2023 take 1 tablet by mouth once daily levoFLOXacin (LEVAQUIN) 750 mg tablet Take 1 tablet by mouth once daily for 7 days. 7 tablet 0 05/04/2023 05/11/2023 Active Completed/Discontinued Medications Medication Drug Class(es) Dates Sig (Normalized) Sig (Original) benzonatate 100 mg oral capsule (2 sources) Non-narcotic Antitussive Start: 09-26-2023 take 1 capsule by mouth every eight hours as needed benzonatate (TESSALON PERLES) 100 mg capsule Take 1 capsule by mouth three times a day as needed for cough. 21 capsule 0 09/26/2023 Active Problems Problem Classification Problem Date Documented Da te Episodic/Chronic Immunizations and screening for infectious disease (2 sources) Patient encounter status; Translations: [Encounter for immunization] Episodic Open wounds of extremities (1 source) Puncture wound of left foot; Translations: [Puncture wound without foreign body, left foot, initial encounter] Episodic Other lower respiratory disease (1 source) Cough; Translations: [Acute cough] 09-26-2023 Episodic Other skin disorders (2 sources) Eruption; Translations: [Rash and other nonspecific skin eruption] Episodic Other upper respiratory infections (2 sources) Acute upper respiratory infection; Translations: [Acute upper respiratory infection, unspecified] Episodic Unclassified (1 source) Acute cough; Translations: [Acute cough] Onset: 09-26-2023 Results Test Name Value Interpretation Reference Range Facil ity Vital Signs Date Time Vital Sign Value Performing Clinician Faci lity 11-03-2023 11:28-0500 Body temperature 97.81 [degF] Michael Villanueva FINANCIAL SERVICES ASSOCIATE.SECURITY STRATEGIST Work Phone: [facility] 11-03-2023 11:28-0500 Body weight 132.9 kg Michael Villanueva FINANCIAL SERVICES ASSOCIATE.SECURITY STRATEGIST Work Phone: [facility] 11-03-2023 11:28-0500 Diastolic blood pressure 78 mm[Hg] Michael Villanueva FINANCIAL SERVICES ASSOCIATE.SECURITY STRATEGIST Work Phone: [facility] 11-03-2023 11:28-0500 Heart rate 57 /min Michael Villanueva FINANCIAL SERVICES ASSOCIATE.SECURITY STRATEGIST Work Phone: [facility] 11-03-2023 11:28-0500 Respiratory rate 20 /min Michael Villanueva FINANCIAL SERVICES ASSOCIATE.SECURITY STRATEGIST Work Phone: [facility] 11-03-2023 11:28-0500 SaO2% (BldA) [Mass fraction] 99 % Michael Villanueva FINANCIAL SERVICES ASSOCIATE.SECURITY STRATEGIST Work Phone: [facility] 11-03-2023 11:28-0500 Systolic blood pressure 131 mm[Hg] Michael Villanueva FINANCIAL SERVICES ASSOCIATE.SECURITY STRATEGIST Work Phone: [facility] 09-26-2023 08:20-0400 Body temperature 97 [degF] Michael Villanueva FINANCIAL SERVICES ASSOCIATE.SECURITY STRATEGIST Work Phone: [facility] 09-26-2023 08:20-0400 Body weight 130.18 kg Michael Villanueva FINANCIAL SERVICES ASSOCIATE.SECURITY STRATEGIST Work Phone: [facility] 09-26-2023 08:20-0400 Diastolic blood pressure 80 mm[Hg] Michael Villanueva FINANCIAL SERVICES ASSOCIATE.SECURITY STRATEGIST Work Phone: [facility] 09-26-2023 08:20-0400 Heart rate 61 /min Michael Villanueva FINANCIAL SERVICES ASSOCIATE.SECURITY STRATEGIST Work Phone: [facility] 09-26-2023 08:20-0400 Respiratory rate 16 /min Michael Villanueva FINANCIAL SERVICES ASSOCIATE.SECURITY STRATEGIST Work Phone: [facility] 09-26-2023 08:20-0400 SaO2% (BldA) [Mass fraction] 98 % Michael Villanueva FINANCIAL SERVICES ASSOCIATE.SECURITY STRATEGIST Work Phone: [facility] 09-26-2023 08:20-0400 Systolic blood pressure 132 mm[Hg] Michael Villanueva FINANCIAL SERVICES ASSOCIATE.SECURITY STRATEGIST Work Phone: [facility] 05-04-2023 17:20-0400 Body temperature 97.2 [degF] Michael Villanueva FINANCIAL SERVICES ASSOCIATE.SECURITY STRATEGIST Work Phone: [facility] 05-04-2023 17:20-0400 Body weight 125.65 kg Michael Villanueva FINANCIAL SERVICES ASSOCIATE.SECURITY STRATEGIST Work Phone: [facility] 05-04-2023 17:20-0400 Diastolic blood pressure 76 mm[Hg] Michael Villanueva FINANCIAL SERVICES ASSOCIATE.SECURITY STRATEGIST Work Phone: [facility] 05-04-2023 17:20-0400 Heart rate 92 /min Michael Villanueva FINANCIAL SERVICES ASSOCIATE.SECURITY STRATEGIST Work Phone: [facility] 05-04-2023 17:20-0400 Respiratory rate 16 /min Michael Villanueva FINANCIAL SERVICES ASSOCIATE.SECURITY STRATEGIST Work Phone: [facility] 05-04-2023 17:20-0400 SaO2% (BldA) [Mass fraction] 96 % Michael Villanueva FINANCIAL SERVICES ASSOCIATE.SECURITY STRATEGIST Work Phone: [facility] 05-04-2023 17:20-0400 Systolic blood pressure 120 mm[Hg] Michael Villanueva FINANCIAL SERVICES ASSOCIATE.SECURITY STRATEGIST Work Phone: [facility] 02-22-2023 09:42-0400 Body temperature 97.2 [degF] Kesha Coulter APRN.SECURITY STRATEGIST Work Phone: [facility] 02-22-2023 09:42-0400 Body weight 127.28 kg Kesha Coulter APRN.SECURITY STRATEGIST Work Phone: [facility] 02-22-2023 09:42-0400 Diastolic blood pressure 78 mm[Hg] Kesha Coulter APRN.SECURITY STRATEGIST Work Phone: [facility] 02-22-2023 09:42-0400 Heart rate 82 /min Kesha Coulter APRN.SECURITY STRATEGIST Work Phone: [facility] 02-22-2023 09:42-0400 Respiratory rate 16 /min Kesha Coulter APRN.SECURITY STRATEGIST Work Phone: [facility] 02-22-2023 09:42-0400 SaO2% (BldA) [Mass fraction] 96 % Kesha Coulter APRN.SECURITY STRATEGIST Work Phone: [facility] 02-22-2023 09:42-0400 Systolic blood pressure 112 mm[Hg] Kesha Coulter APRN.SECURITY STRATEGIST Work Phone: [facility] 06-05-2022 09:59-0400 Body temperature 96.91 [degF] Roni Ospina MD Work Phone: [facility] 06-05-2022 09:59-0400 Body weight 124.56 kg Roni Ospina MD Work Phone: [facility] 06-05-2022 09:59-0400 Diastolic blood pressure 78 mm[Hg] Roni Ospina MD Work Phone: [facility] 06-05-2022 09:59-0400 Heart rate 80 /min Roni Ospina MD Work Phone: [facility] 06-05-2022 09:59-0400 Respiratory rate 20 /min Roni Ospina MD Work Phone: [facility] 06-05-2022 09:59-0400 SaO2% (BldA) [Mass fraction] 97 % Roni Ospina MD Work Phone: [facility] 06-05-2022 09:59-0400 Systolic blood pressure 110 mm[Hg] Roni Ospina MD Work Phone: [facility] 05-12-2022 16:11-0400 Body temperature 97.9 [degF] Kezia Praisler-Wood FINANCIAL SERVICES ASSOCIATE.SECURITY STRATEGIST Work Phone: [facility] 05-12-2022 16:11-0400 Body weight 126.1 kg Kezia Praisler-Wood FINANCIAL SERVICES ASSOCIATE.SECURITY STRATEGIST Work Phone: [facility] 05-12-2022 16:11-0400 Diastolic blood pressure 74 mm[Hg] Kezia Praisler-Wood FINANCIAL SERVICES ASSOCIATE.SECURITY STRATEGIST Work Phone: [facility] 05-12-2022 16:11-0400 Heart rate 72 /min Kezia Praisler-Wood FINANCIAL SERVICES ASSOCIATE.SECURITY STRATEGIST Work Phone: [facility] 05-12-2022 16:11-0400 Respiratory rate 16 /min Kezia Praisler-Wood FINANCIAL SERVICES ASSOCIATE.SECURITY STRATEGIST Work Phone: [facility] 05-12-2022 16:11-0400 SaO2% (BldA) [Mass fraction] 96 % Kezia Praisler-Wood FINANCIAL SERVICES ASSOCIATE.SECURITY STRATEGIST Work Phone: [facility] 05-12-2022 16:11-0400 Systolic blood pressure 122 mm[Hg] Kezia Praisler-Wood FINANCIAL SERVICES ASSOCIATE.SECURITY STRATEGIST Work Phone: [facility] 02-19-2022 07:48-0400 Body temperature 97.81 [degF] Roni Ospina MD Work Phone: [facility] 02-19-2022 07:48-0400 Body weight 125.37 kg Roni Ospina MD Work Phone: [facility] 02-19-2022 07:48-0400 Diastolic blood pressure 82 mm[Hg] Roni Ospina MD Work Phone: [facility] 02-19-2022 07:48-0400 Heart rate 76 /min Roni Ospina MD Work Phone: [facility] 02-19-2022 07:48-0400 Respiratory rate 16 /min Roni Ospina MD Work Phone: [facility] 02-19-2022 07:48-0400 SaO2% (BldA) [Mass fraction] 96 % Roni Ospina MD Work Phone: [facility] 02-19-2022 07:48-0400 Systolic blood pressure 128 mm[Hg] Roni Ospina MD Work Phone: [facility] Encounters Encounter Date Encounter Type Care Provider Facility Start: 11-03-2023 End: 11-03-2023 ambulatory GISELLE OTERO Facility:[facility] Start: 11-03-2023 End: 11-03-2023 Patient encounter procedure Michael Villanueva FINANCIAL SERVICES ASSOCIATE.SECURITY STRATEGIST Work Phone: [facility] Procedures Date Procedure Procedure Detail Performing Clinician Start: 02-22-2023 STREP A MOLECULAR (POC) Lety Haley PA-C Work Phone: Plan of Treatment Date Care Activity Detail Author Start: 05-04-2033 Urine microalbumin profile [facility] Start: 11-03-2023 End: 02-02-2024 TRICHOMONAS VAGINALIS NAAT [facility] Work Phone: Immunizations Immunization Date Immunization Notes Care Provider Fa denise 05-04-2023 tetanus toxoid, redu kaylyn diphtheria toxoid, and acellular pertussis vaccine, adsorbed Michael Villanueva FINANCIAL SERVICES ASSOCIATE.SECURITY STRATEGIST Work Phone: [facility] Work Phone: 04-28-2017 tetanus toxoid, redu kaylyn diphtheria toxoid, and acellular pertussis vaccine, adsorbed Michael Villanueva FINANCIAL SERVICES ASSOCIATE.SECURITY STRATEGIST Work Phone: [facility] Work Phone: Payers Date Payer Category Payer Medicaid [facility] [id number] 2022-Present [phone] [address] [place] [address] Medicaid [id number] 2022 Medicaid [id number] 2022 Medicaid [id number] 2021 Unknown MMO MMO [employer] [id number] 2021-Present [phone] [address] [place] [address] PPO [id number] 2021 Unknown MMO MMO [employer] PPO [id number] 2021-Present [phone] [address] [place] [address] PPO [id number] 2021 Unknown [id number] 2020 Medicaid [facility] MEDIC AID [facility] MEDICAID [id number] 2020-Present [phone] [address] [place] [address] Medicaid [id number] Social History Date Type Detail Facility Start: 01-15-2018 End: 09-26-2023 Tobacco smoking status NHIS Never smoked tobacco [facility] Start: 02-19-2022 End: 11-03-2023 Alcohol intake Current drinker of alcohol (finding) [facility] Start: 05-18-2013 History SDOH Alcohol Comment 1 beer per month [facility] Start: 1985 Sex Assigned At Not on file [facility] Start: 02-09-2022 End: 06-05-2022 Exposure to SARS-CoV-2 (event) Not sure [facility] Start: 01-15-2018 End: 09-26-2023 Tobacco use and exposure Smokeless tobacco non-user [facility] Start: 11-07-2020 End: 09-26-2023 History of Social function [facility] Start: 11-07-2020 End: 09-26-2023 Tobacco use panel [facility] National Score (1-10 0), lower number is lower risk Not on file [facility] Clinical Notes 02-19-2022 to 11-03-2023 Addendum Note - Michael Villanueva APRN.SEAN - 11/03/2023 12:00 PM Michael Wadsworth APRN.SEAN - 11/03/2023 11:34 AM Michael Wadsworth APRN.SEAN - 09/26/2023 8:26 AM EDTPatient Instructions Note Date & Type Note Facility 11-03-2023 Note HNO ID: [id number] Author: Michael Villanueva APRN.SEAN Service: ? Author Type: Nurse Practitioner Type: Progress Notes Filed: 11/03/2023 11:50 AM Note Text: This note was created using [employer]. Subjective Ashlie Weaver is a 38 year old male. 38 year old male with no PMH presents for STI concerns. Acute onset Informed yesterday that partner tested positive for trichomonas. Denies sx Denies penile discharge Denies sx Denies testicular pain or scrotal swelling. Denies abdominal pain. Denies flank pain. Denies skin rash or lesions. The history is provided by the patient. No english as a second language teacher was used. Male Problem This is a new problem. The current episode started yesterday. The problem occurs constantly. The problem has been unchanged. Pertinent negatives include no abdominal pain, anorexia, arthralgias, change in bowel habit, chest pain, chills, congestion, coughing, diaphoresis, fatigue, fever, headaches, joint swelling, myalgias, nausea, neck pain, numbness, rash, sore throat, swollen glands, urinary symptoms, vertigo, visual change, vomiting or weakness. Nothing aggravates the symptoms. He has tried nothing for the symptoms. The treatment provided no relief. PAST MEDICAL HISTORY Diagnosis Date NEGATIVE MEDICAL HISTORY PAST SURGICAL HISTORY Procedure Laterality Date HERNIA REPAIR HX 1989 ALLERGIES Patient has no known allergies. MEDICATIONS metroNIDAZOLE (FLAGYL) 500 mg tablet Take 4 tablets by mouth one time only for 1 dose. predniSONE (DELTASONE) 10 mg tablet Take 4 tabs daily for 3 days, then 2 tabs daily for 3 days, then 1 tab daily for 3 days with food. (Patient not taking: Reported on 11/03/2023) benzonatate (TESSALON PERLES) 100 mg capsule Take 1 capsule by mouth three times a day as needed for cough. (Patient not taking: Reported on 11/03/2023) triamcinolone acetonide (KENALOG) 0.1 % cream Apply 1 application to affected area twice daily. Apply to affected area. Location: rash (Patient not taking: Reported on 02/22/2023) No family history on file. Social History Tobacco Use Smoking status: Never Smokeless tobacco: Never Vaping Use Vaping Use: Never used Substance Use Topics Alcohol use: Yes Comment: 1 beer per month Drug use: No Review of Systems Constitutional: Negative for chills, diaphoresis, fatigue and fever. HENT: Negative for congestion and sore throat. Eyes: Negative for pain, discharge, redness and itching. Respiratory: Negative for cough. Cardiovascular: Negative for chest pain. Gastrointestinal: Negative for abdominal pain, anorexia, change in bowel habit, nausea and vomiting. Genitourinary: Negative for difficulty urinating, dysuria, flank pain, frequency, genital sores, penile discharge, penile pain, penile swelling, scrotal swelling, testicular pain and urgency. Musculoskeletal: Negative for arthralgias, joint swelling, myalgias and neck pain. Skin: Negative for color change, pallor and rash. Allergic/Immunologic: Negative for environmental allergies, food allergies and immunocompromised state. Neurological: Negative for vertigo, weakness, numbness and headaches. Hematological: Negative for adenopathy. Does not bruise/bleed easily. Psychiatric/Behavioral: Negative for agitation and behavioral problems. Objective BP 131/78 Pulse (!) 57 Temp 36.6 ?C (97.8 ?F) Resp 20 Wt 132.9 kg (293 lb) SpO2 99% Physical Exam Vitals and nursing note reviewed. Constitutional: General: He is not in acute distress. Appearance: Normal appearance. He is obese. He is not ill-appearing, toxic-appearing or diaphoretic. HENT: Head: Normocephalic and atraumatic. Right Ear: External ear normal. Left Ear: External ear normal. Nose: Nose normal. No congestion or rhinorrhea. Mouth/Throat: Mouth: Mucous membranes are moist. Pharynx: Oropharynx is clear. No oropharyngeal exudate or posterior oropharyngeal erythema. Eyes: General: Right eye: No discharge. Left eye: No discharge. Extraocular Movements: Extraocular movements intact. Conjunctiva/sclera: Conjunctivae normal. Pupils: Pupils are equal, round, and reactive to light. Cardiovascular: Rate and Rhythm: Normal rate and regular rhythm. Pulses: Normal pulses. Heart sounds: Normal heart sounds. No murmur heard. No friction rub. No gallop. Pulmonary: Effort: Pulmonary effort is normal. No respiratory distress. Breath sounds: Normal breath sounds. No stridor. No wheezing, rhonchi or rales. Chest: Chest wall: No tenderness. Abdominal: General: Abdomen is flat. There is no distension. Palpations: Abdomen is soft. There is no mass. Tenderness: There is no abdominal tenderness. There is no guarding or rebound. Hernia: No hernia is present. Musculoskeletal: General: No swelling, tenderness, deformity or signs of injury. Normal range of motion. Cervical back: Normal range of motion and neck supple. No rigidity or (more content not included)... [facility] 11-03-2023 Miscellaneous Notes Addended by: MICHAEL VILLANUEVA on: 11/03/2023 12:00 PM Modules accepted: Orders documented in this encounter [facility] 11-03-2023 History of Presen t illness Narrative This note was created using [employer]. Subjective Ashlie Weaver is a 38 year old male. 38 year old male with no PMH presents for STI concerns. Acute onset Informed yesterday that partner tested positive for trichomonas. Denies sx Denies penile discharge Denies sx Denies testicular pain or scrotal swelling. Denies abdominal pain. Denies flank pain. Denies skin rash or lesions. The history is provided by the patient. No english as a second language teacher was used. Male Problem This is a new problem. The current episode started yesterday. The problem occurs constantly. The problem has been unchanged. Pertinent negatives include no abdominal pain, anorexia, arthralgias, change in bowel habit, chest pain, chills, congestion, coughing, diaphoresis, fatigue, fever, headaches, joint swelling, myalgias, nausea, neck pain, numbness, rash, sore throat, swollen glands, urinary symptoms, vertigo, visual change, vomiting or weakness. Nothing aggravates the symptoms. He has tried nothing for the symptoms. The treatment provided no relief. PAST MEDICAL HISTORY Diagnosis Date NEGATIVE MEDICAL HISTORY PAST SURGICAL HISTORY Procedure Laterality Date HERNIA REPAIR 1989 ALLERGIES Patient has no known allergies. MEDICATIONS metroNIDAZOLE (FLAGYL) 500 mg tablet Take 4 tablets by mouth one time only for 1 dose. predniSONE (DELTASONE) 10 mg tablet Take 4 tabs daily for 3 days, then 2 tabs daily for 3 days, then 1 tab daily for 3 days with food. (Patient not taking: Reported on 11/03/2023) benzonatate (TESSALON PERLES) 100 mg capsule Take 1 capsule by mouth three times a day as needed for cough. (Patient not taking: Reported on 11/03/2023) triamcinolone acetonide (KENALOG) 0.1 % cream Apply 1 application to affected area twice daily. Apply to affected area. Location: rash (Patient not taking: Reported on 02/22/2023) No family history on file. Social History Tobacco Use Smoking status: Never Smokeless tobacco: Never Vaping Use Vaping Use: Never used Substance Use Topics Alcohol use: Yes Comment: 1 beer per month Drug use: No Review of Systems Constitutional: Negative for chills, diaphoresis, fatigue and fever. HENT: Negative for congestion and sore throat. Eyes: Negative for pain, discharge, redness and itching. Respiratory: Negative for cough. Cardiovascular: Negative for chest pain. Gastrointestinal: Negative for abdominal pain, anorexia, change in bowel habit, nausea and vomiting. Genitourinary: Negative for difficulty urinating, dysuria, flank pain, frequency, genital sores, penile discharge, penile pain, penile swelling, scrotal swelling, testicular pain and urgency. Musculoskeletal: Negative for arthralgias, joint swelling, myalgias and neck pain. Skin: Negative for color change, pallor and rash. Allergic/Immunologic: Negative for environmental allergies, food allergies and immunocompromised state. Neurological: Negative for vertigo, weakness, numbness and headaches. Hematological: Negative for adenopathy. Does not bruise/bleed easily. Psychiatric/Behavioral: Negative for agitation and behavioral problems. Objective BP 131/78 Pulse (!) 57 Temp 36.6 C (97.8 F) Resp 20 Wt 132.9 kg (293 lb) SpO2 99% Physical Exam Vitals and nursing note reviewed. Constitutional: General: He is not in acute distress. Appearance: Normal appearance. He is obese. He is not ill-appearing, toxic-appearing or diaphoretic. HENT: Head: Normocephalic and atraumatic. Right Ear: External ear normal. Left Ear: External ear normal. Nose: Nose normal. No congestion or rhinorrhea. Mouth/Throat: Mouth: Mucous membranes are moist. Pharynx: Oropharynx is clear. No oropharyngeal exudate or posterior oropharyngeal erythema. Eyes: General: Right eye: No discharge. Left eye: No discharge. Extraocular Movements: Extraocular movements intact. Conjunctiva/sclera: Conjunctivae normal. Pupils: Pupils are equal, round, and reactive to light. Cardiovascular: Rate and Rhythm: Normal rate and regular rhythm. Pulses: Normal pulses. Heart sounds: Normal heart sounds. No murmur heard. No friction rub. No gallop. Pulmonary: Effort: Pulmonary effort is normal. No respiratory distress. Breath sounds: Normal breath sounds. No stridor. No wheezing, rhonchi or rales. Chest: Chest wall: No tenderness. Abdominal: General: Abdomen is flat. There is no distension. Palpations: Abdomen is soft. There is no mass. Tenderness: There is no abdominal tenderness. There is no guarding or rebound. Hernia: No hernia is present. Musculoskeletal: General: No swelling, tenderness, deformity or signs of injury. Normal range of motion. Cervical back: Normal range of motion and neck supple. No rigidity or tenderness. Right lower leg: No edema. Left lower leg: No edema. Lymphadenopathy: Cervical: No cervical adenopathy. Skin: General: Skin is warm and dry. Capillary Refill: Capillary refill takes less than 2 seconds. Coloration: Skin is not jaundiced or pale. Findings: No bruising, lesion or rash. Neurological: General: No focal deficit present. Mental Status: He is alert and oriented to person, place, and time. Cranial Nerves: No cranial nerve deficit. Sensory: No sensory deficit. Motor: No weakness. Coordination: Coordination normal. Gait: Gait normal. Deep Tendon Reflexes: Reflexes normal. Psychiatric: Mood and Affect: Mood normal. Behavior: Behavior normal. Thought Content: Thought content normal. Assessment and Plan ASSESSMENT/PLAN: 1. Exposure to sexually transmitted disease (STD) - ICD9: V01.6, ICD10: Z20.2 Informed by long time partner yesterday, she tested POSITIVE for trich. Denies sx Will cover with x 1 dosage Flagyl Will send urine, declines swabs. Discussed no sex x 2 weeks Partners need tested. Discussed the need to also be tested for HIV, syphilis, and/or Hepatitis. Verbalized understanding and will follow up with PCP. - TRICHOMONAS VAGINALIS NAAT - GONORRHEA/CHLAMYDIA NAAT Michael Villanueva APRN.SECURITY STRATEGIST documented in this encounter [facility] 09-26-2023 Note HNO ID: [id number] Author: Marcelino Jacobsen RT(R) Service: ? Author Type: Technologist Type: Progress Notes Filed: 09/26/2023 8:43 AM Note Text: Radiology Service Progress Note PATIENT NAME: Ashlie Weaver DATE OF SERVICE: September 26, 2023 TIME: 8:37 AM PATIENT IDENTITY VERIFICATION COMPLETED USING TWO (2) IDENTIFIERS: Name and Date of confirmed by patient verbally. FALL SCREENING: Has the patient had 2 falls in the last year or 1 fall with injury or currently using an Ambulatory Assistive Device (Walker, Cane, Wheelchair, Crutches, etc.)? No PATIENT GENDER DATA: Male PATIENT RELEVANT IMPLANT DATA REVIEWED: Not Applicable RADIOLOGY DEPARTMENT: General X-ray: Exam(s) Completed: Chest X-Ray PERIPHERAL IV DATA: Not applicable SIGNED BY: RT Kateryna(R) September 26, 2023 8:37 AM [place] [facility] Note HNO ID: [id number] Author: Michael Villanueva APRN.SECURITY STRATEGIST Service: ? Author Type: Nurse Practitioner Type: Progress Notes Filed: 09/26/2023 9:14 AM Note Text: This note was created using [employer]. Subjective Ashlie Weaver is a 38 year old male. 38 year old male with no PMH presents for illness. Acute onset 4 days ago + cough Non productive Initially had chills, but that has since resolved Denies accompanying URI sx. Denies abdominal pain. Denies fever Endorses chest wall pain with coughing and deep breathing. Denies CP at rest. Denies hemoptysis. Denies tobacco usage. Has used DayQuil with mild relief of symptoms The history is provided by the patient. No english as a second language teacher was used. Cough This is a new problem. The current episode started more than 2 days ago. The problem occurs constantly. The problem has been gradually worsening. The cough is Non-productive. There has been no fever. Pertinent negatives include no chest pain, no chills, no sweats, no weight loss, no ear congestion, no ear pain, no headaches, no rhinorrhea, no sore throat, no myalgias, no shortness of breath, no wheezing and no eye redness. He has tried cough syrup for the symptoms. The treatment provided no relief. He is not a smoker. His past medical history does not include bronchitis, pneumonia, bronchiectasis, COPD, emphysema or asthma. PAST MEDICAL HISTORY Diagnosis Date NEGATIVE MEDICAL HISTORY PAST SURGICAL HISTORY Procedure Laterality Date HERNIA REPAIR 1989 ALLERGIES Patient has no known allergies. MEDICATIONS predniSONE (DELTASONE) 10 mg tablet Take 4 tabs daily for 3 days, then 2 tabs daily for 3 days, then 1 tab daily for 3 days with food. benzonatate (TESSALON PERLES) 100 mg capsule Take 1 capsule by mouth three times a day as needed for cough. triamcinolone acetonide (KENALOG) 0.1 % cream Apply 1 application to affected area twice daily. Apply to affected area. Location: rash (Patient not taking: Reported on 02/22/2023) No family history on file. Social History Tobacco Use Smoking status: Never Smokeless tobacco: Never Vaping Use Vaping Use: Never used Substance Use Topics Alcohol use: Yes Comment: 1 beer per month Drug use: No Review of Systems Constitutional: Negative for chills, fatigue, fever and weight loss. HENT: Negative for ear pain, rhinorrhea and sore throat. Eyes: Negative for discharge, redness and itching. Respiratory: Positive for cough. Negative for apnea, choking, chest tightness, shortness of breath and wheezing. Cardiovascular: Negative for chest pain. Gastrointestinal: Negative for abdominal pain, diarrhea, nausea and vomiting. Musculoskeletal: Negative for arthralgias, back pain and myalgias. Skin: Negative for color change, pallor, rash and wound. Allergic/Immunologic: Negative for environmental allergies, food allergies and immunocompromised state. Neurological: Negative for dizziness, facial asymmetry and headaches. Hematological: Negative for adenopathy. Psychiatric/Behavioral: Negative for agitation and behavioral problems. Objective BP 132/80 Pulse 61 Temp 36.1 ?C (97 ?F) Resp 16 Wt 130.2 kg (287 lb) SpO2 98% Physical Exam Vitals and nursing note reviewed. Constitutional: General: He is not in acute distress. Appearance: Normal appearance. He is not ill-appearing, toxic-appearing or diaphoretic. HENT: Head: Normocephalic and atraumatic. Right Ear: External ear normal. Left Ear: External ear normal. Nose: Nose normal. No congestion or rhinorrhea. Mouth/Throat: Mouth: Mucous membranes are moist. Pharynx: Oropharynx is clear. No oropharyngeal exudate or posterior oropharyngeal erythema. Eyes: General: Right eye: No discharge. Left eye: No discharge. Extraocular Movements: Extraocular movements intact. Conjunctiva/sclera: Conjunctivae normal. Pupils: Pupils are equal, round, and reactive to light. Cardiovascular: Rate and Rhythm: Normal rate and regular rhythm. Pulses: Normal pulses. Heart sounds: Normal heart sounds. No murmur heard. No friction rub. No gallop. Pulmonary: Effort: Pulmonary effort is normal. No respiratory distress. Breath sounds: Normal breath sounds. No stridor. No wheezing, rhonchi or rales. Chest: Chest wall: No tenderness. Abdominal: General: Abdomen is flat. There is no distension. Palpations: Abdomen is soft. There is no mass. Tenderness: There is no abdominal tenderness. There is no guarding or rebound. Hernia: No hernia is present. Musculoskeletal: General: No swelling, tenderness, deformity or signs of injury. Normal range of motion. Cervical back: Normal range of motion and neck supple. No rigidity or tenderness. Right lower leg: No edema. Left lower leg: No edema. Lymphadenopathy: Cervical: No cervical adenopathy. Skin: General: Skin is warm and dry. Capillary Refill: Capillary refill takes less than 2 seconds (more content not included)... [facility] 09-26-2023 History of Presen t illness Narrative This note was created using [employer]. Subjective Ashlie Weaver is a 38 year old male. 38 year old male with no PMH presents for illness. Acute onset 4 days ago + cough Non productive Initially had chills, but that has since resolved Denies accompanying URI sx. Denies abdominal pain. Denies fever Endorses chest wall pain with coughing and deep breathing. Denies CP at rest. Denies hemoptysis. Denies tobacco usage. Has used DayQuil with mild relief of symptoms The history is provided by the patient. No english as a second language teacher was used. Cough This is a new problem. The current episode started more than 2 days ago. The problem occurs constantly. The problem has been gradually worsening. The cough is Non-productive. There has been no fever. Pertinent negatives include no chest pain, no chills, no sweats, no weight loss, no ear congestion, no ear pain, no headaches, no rhinorrhea, no sore throat, no myalgias, no shortness of breath, no wheezing and no eye redness. He has tried cough syrup for the symptoms. The treatment provided no relief. He is not a smoker. His past medical history does not include bronchitis, pneumonia, bronchiectasis, COPD, emphysema or asthma. PAST MEDICAL HISTORY Diagnosis Date NEGATIVE MEDICAL HISTORY PAST SURGICAL HISTORY Procedure Laterality Date HERNIA REPAIR HX 1989 ALLERGIES Patient has no known allergies. MEDICATIONS predniSONE (DELTASONE) 10 mg tablet Take 4 tabs daily for 3 days, then 2 tabs daily for 3 days, then 1 tab daily for 3 days with food. benzonatate (TESSALON PERLES) 100 mg capsule Take 1 capsule by mouth three times a day as needed for cough. triamcinolone acetonide (KENALOG) 0.1 % cream Apply 1 application to affected area twice daily. Apply to affected area. Location: rash (Patient not taking: Reported on 02/22/2023) No family history on file. Social History Tobacco Use Smoking status: Never Smokeless tobacco: Never Vaping Use Vaping Use: Never used Substance Use Topics Alcohol use: Yes Comment: 1 beer per month Drug use: No Review of Systems Constitutional: Negative for chills, fatigue, fever and weight loss. HENT: Negative for ear pain, rhinorrhea and sore throat. Eyes: Negative for discharge, redness and itching. Respiratory: Positive for cough. Negative for apnea, choking, chest tightness, shortness of breath and wheezing. Cardiovascular: Negative for chest pain. Gastrointestinal: Negative for abdominal pain, diarrhea, nausea and vomiting. Musculoskeletal: Negative for arthralgias, back pain and myalgias. Skin: Negative for color change, pallor, rash and wound. Allergic/Immunologic: Negative for environmental allergies, food allergies and immunocompromised state. Neurological: Negative for dizziness, facial asymmetry and headaches. Hematological: Negative for adenopathy. Psychiatric/Behavioral: Negative for agitation and behavioral problems. Objective BP 132/80 Pulse 61 Temp 36.1 C (97 F) Resp 16 Wt 130.2 kg (287 lb) SpO2 98% Physical Exam Vitals and nursing note reviewed. Constitutional: General: He is not in acute distress. Appearance: Normal appearance. He is not ill-appearing, toxic-appearing or diaphoretic. HENT: Head: Normocephalic and atraumatic. Right Ear: External ear normal. Left Ear: External ear normal. Nose: Nose normal. No congestion or rhinorrhea. Mouth/Throat: Mouth: Mucous membranes are moist. Pharynx: Oropharynx is clear. No oropharyngeal exudate or posterior oropharyngeal erythema. Eyes: General: Right eye: No discharge. Left eye: No discharge. Extraocular Movements: Extraocular movements intact. Conjunctiva/sclera: Conjunctivae normal. Pupils: Pupils are equal, round, and reactive to light. Cardiovascular: Rate and Rhythm: Normal rate and regular rhythm. Pulses: Normal pulses. Heart sounds: Normal heart sounds. No murmur heard. No friction rub. No gallop. Pulmonary: Effort: Pulmonary effort is normal. No respiratory distress. Breath sounds: Normal breath sounds. No stridor. No wheezing, rhonchi or rales. Chest: Chest wall: No tenderness. Abdominal: General: Abdomen is flat. There is no distension. Palpations: Abdomen is soft. There is no mass. Tenderness: There is no abdominal tenderness. There is no guarding or rebound. Hernia: No hernia is present. Musculoskeletal: General: No swelling, tenderness, deformity or signs of injury. Normal range of motion. Cervical back: Normal range of motion and neck supple. No rigidity or tenderness. Right lower leg: No edema. Left lower leg: No edema. Lymphadenopathy: Cervical: No cervical adenopathy. Skin: General: Skin is warm and dry. Capillary Refill: Capillary refill takes less than 2 seconds. Coloration: Skin is not jaundiced or pale. Findings: No bruising, lesion or rash. Neurological: General: No focal deficit present. Mental Status: He is alert and oriented to person, place, and time. Cranial Nerves: No cranial nerve deficit. Sensory: No sensory deficit. Motor: No weakness. Coordination: Coordination normal. Gait: Gait normal. Deep Tendon Reflexes: Reflexes normal. Psychiatric: Mood and Affect: Mood normal. Behavior: Behavior normal. Thought Content: Thought content normal. Assessment and Plan ASSESSMENT/PLAN: 1. Acute cough - ICD9: 786.2, ICD10: R05.1 X 3 to 4 days Non productive Endorses chest wall pain with coughing and deep breathing. No red flags - XR CHEST 2V FRONTAL/LAT-negative for acute process Discussed with patient that if symptoms worsen or chest pain at rest to seek ED. RX Prednisone taper RX Rebekah Schwartz Follow up with PCP if symptoms persist. Michael Villanueva APRN.SECURITY STRATEGIST documented in this encounter [facility] 05-04-2023 Note HNO ID: [id number] Author: Michael Villanueva APRN.SECURITY STRATEGIST Service: ? Author Type: Nurse Practitioner Type: Progress Notes Filed: 05/04/2023 5:44 PM Note Text: This note was created using [employer]. Subjective Ashlie Weaver is a 38 year old male. 38 year old male with no PMH presents for PW to left foot. Acute onset of symptoms was today States he was outside in backyard and stepped on nail Nail pierced through rubber sandal and into bottom of left foot. He removed nail himself He cleansed wound with hydrogen peroxide Denies accompanying injuries Last tetanus was March 2017. The history is provided by the patient. No english as a second language teacher was used. Wound Check This is a new problem. The current episode started today. The problem occurs constantly. The problem has been unchanged. Pertinent negatives include no abdominal pain, anorexia, arthralgias, change in bowel habit, chest pain, chills, congestion, coughing, diaphoresis, fatigue, fever, headaches, joint swelling, myalgias, nausea, neck pain, numbness, rash, sore throat, swollen glands, urinary symptoms, vertigo, visual change, vomiting or weakness. The symptoms are aggravated by standing. Treatments tried: cleansed wound and applied band aid. The treatment provided no relief. PAST MEDICAL HISTORY Diagnosis Date NEGATIVE MEDICAL HISTORY PAST SURGICAL HISTORY Procedure Laterality Date HERNIA REPAIR 1989 ALLERGIES Patient has no known allergies. MEDICATIONS levoFLOXacin (LEVAQUIN) 750 mg tablet Take 1 tablet by mouth once daily for 7 days. triamcinolone acetonide (KENALOG) 0.1 % cream Apply 1 application to affected area twice daily. Apply to affected area. Location: rash (Patient not taking: Reported on 02/22/2023) No family history on file. Social History Tobacco Use Smoking status: Never Smokeless tobacco: Never Vaping Use Vaping Use: Never used Substance Use Topics Alcohol use: Yes Comment: 1 beer per month Drug use: No Review of Systems Constitutional: Negative for chills, diaphoresis, fatigue and fever. HENT: Negative for congestion and sore throat. Respiratory: Negative for cough. Cardiovascular: Negative for chest pain, palpitations and leg swelling. Gastrointestinal: Negative for abdominal pain, anorexia, change in bowel habit, nausea and vomiting. Musculoskeletal: Negative for arthralgias, joint swelling, myalgias and neck pain. Skin: Positive for wound. Negative for color change, pallor and rash. Allergic/Immunologic: Negative for environmental allergies, food allergies and immunocompromised state. Neurological: Negative for vertigo, weakness, numbness and headaches. Hematological: Negative for adenopathy. Does not bruise/bleed easily. Psychiatric/Behavioral: Negative for agitation and behavioral problems. Objective BP 120/76 Pulse 92 Temp 36.2 ?C (97.2 ?F) Resp 16 Wt 125.6 kg (277 lb) SpO2 96% BMI 40.91 kg/m? Physical Exam Vitals and nursing note reviewed. Constitutional: General: He is not in acute distress. Appearance: Normal appearance. He is not ill-appearing, toxic-appearing or diaphoretic. HENT: Head: Normocephalic and atraumatic. Right Ear: External ear normal. Left Ear: External ear normal. Nose: Nose normal. No congestion or rhinorrhea. Mouth/Throat: Mouth: Mucous membranes are moist. Pharynx: Oropharynx is clear. No oropharyngeal exudate or posterior oropharyngeal erythema. Eyes: General: Right eye: No discharge. Left eye: No discharge. Extraocular Movements: Extraocular movements intact. Conjunctiva/sclera: Conjunctivae normal. Pupils: Pupils are equal, round, and reactive to light. Cardiovascular: Rate and Rhythm: Normal rate and regular rhythm. Pulses: Normal pulses. Heart sounds: Normal heart sounds. No murmur heard. No friction rub. No gallop. Pulmonary: Effort: Pulmonary effort is normal. No respiratory distress. Breath sounds: Normal breath sounds. No stridor. No wheezing, rhonchi or rales. Chest: Chest wall: No tenderness. Abdominal: General: Abdomen is flat. There is no distension. Palpations: Abdomen is soft. There is no mass. Tenderness: There is no abdominal tenderness. There is no guarding or rebound. Hernia: No hernia is present. Musculoskeletal: General: No swelling, tenderness, deformity or signs of injury. Normal range of motion. Cervical back: Normal range of motion and neck supple. No rigidity or tenderness. Right lower leg: No edema. Left lower leg: No edema. Feet: Lymphadenopathy: Cervical: No cervical adenopathy. Skin: General: Skin is warm and dry. Capillary Refill: Capillary refill takes less than 2 seconds. Coloration: Skin is not jaundiced or pale. Findings: No bruising, lesion or rash. Neurological: General: No focal deficit present. Mental Status: He is alert and oriented to person, place, and time. Cranial Nerves: No cranial nerve deficit. Sensory: (more content not included)... [facility] 05-04-2023 History of Presen t illness Narrative Images from the original note were not included. This note was created using [employer]. Subjective Ashlie Weaver is a 38 year old male. 38 year old male with no PMH presents for PW to left foot. Acute onset of symptoms was today States he was outside in backyard and stepped on nail Nail pierced through rubber sandal and into bottom of left foot. He removed nail himself He cleansed wound with hydrogen peroxide Denies accompanying injuries Last tetanus was March 2017. The history is provided by the patient. No english as a second language teacher was used. Wound Check This is a new problem. The current episode started today. The problem occurs constantly. The problem has been unchanged. Pertinent negatives include no abdominal pain, anorexia, arthralgias, change in bowel habit, chest pain, chills, congestion, coughing, diaphoresis, fatigue, fever, headaches, joint swelling, myalgias, nausea, neck pain, numbness, rash, sore throat, swollen glands, urinary symptoms, vertigo, visual change, vomiting or weakness. The symptoms are aggravated by standing. Treatments tried: cleansed wound and applied band aid. The treatment provided no relief. PAST MEDICAL HISTORY Diagnosis Date NEGATIVE MEDICAL HISTORY PAST SURGICAL HISTORY Procedure Laterality Date HERNIA REPAIR HX 1989 ALLERGIES Patient has no known allergies. MEDICATIONS levoFLOXacin (LEVAQUIN) 750 mg tablet Take 1 tablet by mouth once daily for 7 days. triamcinolone acetonide (KENALOG) 0.1 % cream Apply 1 application to affected area twice daily. Apply to affected area. Location: rash (Patient not taking: Reported on 02/22/2023) No family history on file. Social History Tobacco Use Smoking status: Never Smokeless tobacco: Never Vaping Use Vaping Use: Never used Substance Use Topics Alcohol use: Yes Comment: 1 beer per month Drug use: No Review of Systems Constitutional: Negative for chills, diaphoresis, fatigue and fever. HENT: Negative for congestion and sore throat. Respiratory: Negative for cough. Cardiovascular: Negative for chest pain, palpitations and leg swelling. Gastrointestinal: Negative for abdominal pain, anorexia, change in bowel habit, nausea and vomiting. Musculoskeletal: Negative for arthralgias, joint swelling, myalgias and neck pain. Skin: Positive for wound. Negative for color change, pallor and rash. Allergic/Immunologic: Negative for environmental allergies, food allergies and immunocompromised state. Neurological: Negative for vertigo, weakness, numbness and headaches. Hematological: Negative for adenopathy. Does not bruise/bleed easily. Psychiatric/Behavioral: Negative for agitation and behavioral problems. Objective BP 120/76 Pulse 92 Temp 36.2 C (97.2 F) Resp 16 Wt 125.6 kg (277 lb) SpO2 96% BMI 40.91 kg/m Physical Exam Vitals and nursing note reviewed. Constitutional: General: He is not in acute distress. Appearance: Normal appearance. He is not ill-appearing, toxic-appearing or diaphoretic. HENT: Head: Normocephalic and atraumatic. Right Ear: External ear normal. Left Ear: External ear normal. Nose: Nose normal. No congestion or rhinorrhea. Mouth/Throat: Mouth: Mucous membranes are moist. Pharynx: Oropharynx is clear. No oropharyngeal exudate or posterior oropharyngeal erythema. Eyes: General: Right eye: No discharge. Left eye: No discharge. Extraocular Movements: Extraocular movements intact. Conjunctiva/sclera: Conjunctivae normal. Pupils: Pupils are equal, round, and reactive to light. Cardiovascular: Rate and Rhythm: Normal rate and regular rhythm. Pulses: Normal pulses. Heart sounds: Normal heart sounds. No murmur heard. No friction rub. No gallop. Pulmonary: Effort: Pulmonary effort is normal. No respiratory distress. Breath sounds: Normal breath sounds. No stridor. No wheezing, rhonchi or rales. Chest: Chest wall: No tenderness. Abdominal: General: Abdomen is flat. There is no distension. Palpations: Abdomen is soft. There is no mass. Tenderness: There is no abdominal tenderness. There is no guarding or rebound. Hernia: No hernia is present. Musculoskeletal: General: No swelling, tenderness, deformity or signs of injury. Normal range of motion. Cervical back: Normal range of motion and neck supple. No rigidity or tenderness. Right lower leg: No edema. Left lower leg: No edema. Feet: Lymphadenopathy: Cervical: No cervical adenopathy. Skin: General: Skin is warm and dry. Capillary Refill: Capillary refill takes less than 2 seconds. Coloration: Skin is not jaundiced or pale. Findings: No bruising, lesion or rash. Neurological: General: No focal deficit present. Mental Status: He is alert and oriented to person, place, and time. Cranial Nerves: No cranial nerve deficit. Sensory: No sensory deficit. Motor: No weakness. Coordination: Coordination normal. Gait: Gait normal. Deep Tendon Reflexes: Reflexes normal. Psychiatric: Mood and Affect: Mood normal. Behavior: Behavior normal. Thought Content: Thought content normal. Assessment and Plan ASSESSMENT/PLAN: 1. Encounter for immunization - ICD9: V03.89, ICD10: Z23 (primary diagnosis) Last Tdap 2016 PW today Administered by nursing staff VIS provided 2. Puncture wound of left foot, initial encounter - ICD9: 892.0, ICD10: S91.332A Wound cleansed Topical ATB ointment applied Given the nail went through sole of shoe, concerns for pseudomonas RX Levaquin Discussed no impact sports r/t concerns for tendon rupture Michael Villanueva APRN.SEAN documented in this encounter [facility] 02-22-2023 Note HNO ID: [id number] Author: Kesha Coulter APRN.SEAN Service: ? Author Type: Nurse Practitioner Type: Progress Notes Filed: 02/22/2023 10:01 AM Note Text: CC: Patient presents with: Sore Throat: ST x 2 days HPI: Ashlie Weaver is a 37 year old male who presents to the office with complaint of cough, nonproductive and sore throat for a few days. Symptoms are staying the same. Associated symptoms includes sore throat. Denies fever, nausea, vomiting , and diarrhea. Treatments tried include nothing so far. with no relief of symptoms. Sick contacts: unknown. History of asthma, frequent episodes of bronchitis, chronic bronchitis, bronchiectasis or COPD: No Smoker: No Seasonal/environmental allergies: No The ROS is otherwise negative. The patient's pmh, medications, allergies, and past visits are reviewed. PHYSICAL EXAM: BP 112/78 Pulse 82 Temp 36.2 ?C (97.2 ?F) (Tympanic) Resp 16 Wt 127.3 kg (280 lb 9.6 oz) SpO2 96% BMI 41.44 kg/m? General appearance: alert, cooperative, pleasant, in no acute distress Head: Normocephalic Eyes: EOM's intact, conjunctiva pink and moist, no icterus, sclera white, non-injected Ears: Right ear: External ear/canal- Normal, TM - clear with good landmarks. Left ear: External ear/canal- Normal, TM - clear with good landmarks Oropharynx:moist without lesions, mild erythema, no exudates or tonsillar hypertrophy. Heart: Negative. RRR without obvious murmur, gallop, or rubs. No ectopy. Lungs: clear to auscultation, without rales or wheeze, good air exchange PAST MEDICAL HISTORY Diagnosis Date NEGATIVE MEDICAL HISTORY PAST SURGICAL HISTORY Procedure Laterality Date HERNIA REPAIR HX 1989 ALLERGIES Patient has no known allergies. MEDICATIONS triamcinolone acetonide (KENALOG) 0.1 % cream Apply 1 application to affected area twice daily. Apply to affected area. Location: rash (Patient not taking: Reported on 02/22/2023) No family history on file. Social History Tobacco Use Smoking status: Never Smokeless tobacco: Never Vaping Use Vaping Use: Never used Substance Use Topics Alcohol use: Yes Comment: 1 beer per month Drug use: No ASSESSMENT/PLAN: 1. Sore throat - ICD9: 462, ICD10: J02.9 - STREP A MOLECULAR (POC)- neg No treatment at this time. Potential red flag symptoms discussed with the patient. Reviewed appropriate action plan to take if red flag symptoms occur. Patient agreeable to treatment plan. Follow up if symptoms worsen. Kesha Coulter APRN.[facility] 02-22-2023 History of Presen t illness Narrative CC: Patient presents with: Sore Throat: ST x 2 days HPI: Ashlie Weaver is a 37 year old male who presents to the office with complaint of cough, nonproductive and sore throat for a few days. Symptoms are staying the same. Associated symptoms includes sore throat. Denies fever, nausea, vomiting , and diarrhea. Treatments tried include nothing so far. with no relief of symptoms. Sick contacts: unknown. History of asthma, frequent episodes of bronchitis, chronic bronchitis, bronchiectasis or COPD: No Smoker: No Seasonal/environmental allergies: No The ROS is otherwise negative. The patient's pmh, medications, allergies, and past visits are reviewed. PHYSICAL EXAM: BP 112/78 Pulse 82 Temp 36.2 C (97.2 F) (Tympanic) Resp 16 Wt 127.3 kg (280 lb 9.6 oz) SpO2 96% BMI 41.44 kg/m General appearance: alert, cooperative, pleasant, in no acute distress Head: Normocephalic Eyes: EOM's intact, conjunctiva pink and moist, no icterus, sclera white, non-injected Ears: Right ear: External ear/canal- Normal, TM - clear with good landmarks. Left ear: External ear/canal- Normal, TM - clear with good landmarks Oropharynx:moist without lesions, mild erythema, no exudates or tonsillar hypertrophy. Heart: Negative. RRR without obvious murmur, gallop, or rubs. No ectopy. Lungs: clear to auscultation, without rales or wheeze, good air exchange PAST MEDICAL HISTORY Diagnosis Date NEGATIVE MEDICAL HISTORY PAST SURGICAL HISTORY Procedure Laterality Date HERNIA REPAIR HX 1989 ALLERGIES Patient has no known allergies. MEDICATIONS triamcinolone acetonide (KENALOG) 0.1 % cream Apply 1 application to affected area twice daily. Apply to affected area. Location: rash (Patient not taking: Reported on 02/22/2023) No family history on file. Social History Tobacco Use Smoking status: Never Smokeless tobacco: Never Vaping Use Vaping Use: Never used Substance Use Topics Alcohol use: Yes Comment: 1 beer per month Drug use: No ASSESSMENT/PLAN: 1. Sore throat - ICD9: 462, ICD10: J02.9 - STREP A MOLECULAR (POC)- neg No treatment at this time. Potential red flag symptoms discussed with the patient. Reviewed appropriate action plan to take if red flag symptoms occur. Patient agreeable to treatment plan. Follow up if symptoms worsen. Kesha Coulter APRN.SEAN documented in this encounter [facility] 06-05-2022 History of Presen t illness Narrative Patient presents with: Rash: hives, poison kwame x1 week HPI: Rash: Location: arms, hands, abdomen at waist, ankles Duration: flared up 1 week, 3rd episode in the last month or so Pruritis: Yes Pain: Change: Most spots improved from a couple days ago. Was concentrated on ventral wrists. Bleeding/ulceration/blister/pust ule: Mumps, hives Contacts with rash: No, lives with and 3 children. Exposure: New old spice body wash. No new detergents, fabric softeners, lotions. Outdoor exposure: Has poison kwame around his yard, has dogs. Change in medications: No. Recent illness: No. Treatment: Triamcinolone cream. Treated here with 9 day taper of prednisone for poison kwame rash on 05/12/22. PAST MEDICAL HISTORY Diagnosis Date NEGATIVE MEDICAL HISTORY PAST SURGICAL HISTORY Procedure Laterality Date HERNIA REPAIR 1989 MEDICATIONS: No prescriptions on file. ALLERGIES: ALLERGIES No Known Allergies VITALS: BP 110/78 Pulse 80 Temp 36.1 C (96.9 F) Resp 20 Wt 124.6 kg (274 lb 9.6 oz) SpO2 97% BMI 40.55 kg/m PHYSICAL EXAM: GEN: pleasant, no acute distress, alert SKIN: Pigment of descent. Pinhead papules sparsely distributed over the arms, fingers, ankles. ASSESSMENT/PLAN: 1. Rash - ICD9: 782.1, ICD10: R21 Patient identifies 3 episodes of rash over the last month which may be separate or the same underlying condition. The most likely condition is recurrent contact dermatitis from outside/child/pet exposure. His rash appearance and distribution differential includes scabies although improvement within a week and no household members with rash makes this less likely. - TRIAMCINOLONE ACETONIDE 0.1 % TOPICAL CREAM - Informed of the risk of permanent skin color change with topical sterid use. Limit use to no more than 7 days. Avoid applying steroid to face, axilla, groin, or lesions other than the diagnosed condition. He would like to treat for possible scabies - PERMETHRIN 5 % TOPICAL CREAM. Treat family at the same time. Follow up with dermatology if rash persists. Roni Ospina MD documented in this encounter [facility] 05-12-2022 History of Presen t illness Narrative Images from the original note were not included. Subjective Ashlie Weaver is a 37 year old male who presents with a rash to face, neck, groin, and bilateral thigh for 5 days. He reports the rash is itchy. Denies any fever, chills, shortness of breath, or associated pain. Denies any new lotions, soaps, or detergents. He has not taken any medications for the itchiness. He does note taking a new vitamin for the past 9 days. The history is provided by the patient. No english as a second language teacher was used. Rash This is a new problem. The current episode started in the past 7 days. The problem has been gradually worsening since onset. Pertinent negatives include no cough, fever, joint pain or shortness of breath. Review of Systems Constitutional: Negative for chills and fever. Respiratory: Negative for cough and shortness of breath. Cardiovascular: Negative for chest pain and palpitations. Musculoskeletal: Negative for joint pain, myalgias and neck pain. Skin: Positive for itching and rash. Neurological: Negative for tingling and headaches. BP 122/74 Pulse 72 Temp 36.6 C (97.9 F) Resp 16 Wt 126.1 kg (278 lb) SpO2 96% BMI 41.05 kg/m PAST MEDICAL HISTORY Diagnosis Date NEGATIVE MEDICAL HISTORY PAST SURGICAL HISTORY Procedure Laterality Date HERNIA REPAIR HX 1989 ALLERGIES Patient has no known allergies. MEDICATIONS predniSONE (DELTASONE) 10 mg tablet Take 4 tabs daily for 3 days, then 2 tabs daily for 3 days, then 1 tab daily for 3 days with food. triamcinolone (KENALOG) 0.025 % cream Apply to affected area twice daily for 10 days. No family history on file. Social History Tobacco Use Smoking status: Never Smoker Smokeless tobacco: Never Used Vaping Use Vaping Use: Never used Substance Use Topics Alcohol use: Yes Comment: 1 beer per month Drug use: No Objective Physical Exam Vitals and nursing note reviewed. Constitutional: Appearance: Normal appearance. Cardiovascular: Rate and Rhythm: Normal rate and regular rhythm. Pulmonary: Effort: Pulmonary effort is normal. Breath sounds: Normal breath sounds. Musculoskeletal: General: No swelling. Skin: General: Skin is warm. Findings: Rash present. No bruising or signs of injury. Rash is vesicular. Neurological: Mental Status: He is alert and oriented to person, place, and time. ASSESSMENT/PLAN: 1. Rash - ICD9: 782.1, ICD10: R21 - suspect poison kwame - PREDNISONE 10 MG TABLET - TRIAMCINOLONE ACETONIDE 0.025 % TOPICAL CREAM TEJAS Sinha student TEACHING PROVIDER (Physician/PA/FINANCIAL SERVICES ASSOCIATE) NOTE OF PERSONAL INVOLVEMENT IN CARE: I have personally seen and examined the patient and performed the medical decision-making components. I have reviewed the Advanced Practice Registered Nurse (FINANCIAL SERVICES ASSOCIATE) Student's documentation and verified the findings in the note as written. Any additions or changes are noted in bold/italics. Signature: Kezia Kerns Date: 05/12/2022 Time: 5:02 PM documented in this encounter [facility] 05-12-2022 Instructions Jayne Dixon - 05/12/2022 4:33 PM EDT ASSESSMENT/PLAN: 1. Rash - ICD9: 782.1, ICD10: R21 - PREDNISONE 10 MG TABLET - TRIAMCINOLONE ACETONIDE 0.025 % TOPICAL CREAM TEJAS Sinha student documented in this encounter [facility] 02-19-2022 History of Presen t illness Narrative Patient presents with: Sinus Problem: congestion and cough x 1 day HPI: Feeling sick for 3-4 days, worse head symptoms since last night. His son has been sick. Positive symptoms: Cough, Nasal Congestion, Rhinorrhea, eye irritation and discharge, sore throat x 3 days Negative symptoms: Sinus pressure, Fever, Vomiting, Diarrhea, OTC: Nyquil, Dayquil Had COVID in November. PAST MEDICAL HISTORY Diagnosis Date NEGATIVE MEDICAL HISTORY MEDICATIONS: Current Outpatient Medications Medication Sig triamcinolone acetonide (KENALOG) 0.1 % cream Apply 1 application to affected area twice daily for 14 days. Apply to affected area. Location: chest bump No current facility-administered medications for this visit. ALLERGIES: ALLERGIES No Known Allergies VITALS: BP 128/82 Pulse 76 Temp 36.6 C (97.8 F) (Tympanic) Resp 16 Wt 125.4 kg (276 lb 6.4 oz) SpO2 96% BMI 40.82 kg/m PHYSICAL EXAM: GEN: mildly ill appearing HEENT: PERRL, EOMI, conjunctiva with mild injection Ears: canals clear. TMs without erythema, bulge, or effusion Sinuses: non-tender frontal sinus, non-tender maxillary sinuses Throat: moist mucous membranes, mild erythema, no exudate Neck: supple, no thyromegaly, no lymphadenopathy HEART: regular rate and rhythm, no murmurs LUNGS: clear to auscultation, no wheezes or crackles, no increased WOB ASSESSMENT/PLAN: 1. URI, acute - ICD9: 465.9, ICD10: J06.9 - Discussed viral etiology and rationale for treatment. S/p recent COVID infection. - Symptomatic treatment with prn analgesia - Supportive care - The patient may also use OTC cough and cold meds as needed. Viral [place] [facility] discussed. Infectious conjunctivitis is most commonly caused by cold viruses and is a self-limited condition which usually resolves in about a week. Bacterial conjunctivitis usually follows a similar course, but symptoms and contagiousness are responsive to antibiotics. Hand hygiene with washing or day care aide is important to reduce spread of the infection. Roni Ospina MD documented in this encounter [facility] Rash- Primary Rash and other nonspecific skin eruption [facility] Diagnosis Rash- Primary Rash and other nonspecific skin eruption [facility] Diagnosis Sore throat- Primary Acute pharyngitis [facility] Diagnosis Encounter for immunization- Primary Need for other specified prophylactic vaccination against single bacterial disease Puncture wound of left foot, initial encounter [facility] Diagnosis Acute cough- Primary [facility] Diagnosis Exposure to sexually transmitted disease (STD)- Primary Contact with or exposure to other communicable diseases documented in this encounter [facility] Summary Purpose Family History No Family History Records Found Advance Directives No Advanced Directives Records Found Additional Source Comments Source Comments (unrecognize d section and content) In the event this informatio n is protected by the Federal Confidentiality of Alcohol and Drug Abuse Patient Records regulations: The Federal rules restrict any use of the information to criminally investigate or prosecute any alcohol or drug abuse patient.[facility] event this information is protected by the Federal Confidentiality of Alcohol and Drug Abuse Patient Records regulations: The Federal rules restrict any use of the information to criminally investigate or prosecute any alcohol or drug abuse patient.[facility] the event this information is protected by the Federal Confidentiality of Alcohol and Drug Abuse Patient Records regulations: The Federal rules restrict any use of the information to criminally investigate or prosecute any alcohol or drug abuse patient.[facility] the event this information is protected by the Federal Confidentiality of Alcohol and Drug Abuse Patient Records regulations: The Federal rules restrict any use of the information to criminally investigate or prosecute any alcohol or drug abuse patient.[facility] the event this information is protected by the Federal Confidentiality of Alcohol and Drug Abuse Patient Records regulations: The Federal rules restrict any use of the information to criminally investigate or prosecute any alcohol or drug abuse patient.[facility] the event this information is protected by the Federal Confidentiality of Alcohol and Drug Abuse Patient Records regulations: The Federal rules restrict any use of the information to criminally investigate or prosecute any alcohol or drug abuse patient.[facility] the event this information is protected by the Federal Confidentiality of Alcohol and Drug Abuse Patient Records regulations: The Federal rules restrict any use of the information to criminally investigate or prosecute any alcohol or drug abuse patient.[facility] the event this information is protected by the Federal Confidentiality of Alcohol and Drug Abuse Patient Records regulations: The Federal rules restrict any use of the information to criminally investigate or prosecute any alcohol or drug abuse patient.[facility] Reason for Visit (unrecogniz ed section and content) Reason Comments Rash itching x 4 days Reason Comments Opened In Error Reason Comments Rash hives, poison kwame x1 week Reason Comments Sore Throat ST x 2 days Reason Comments Puncture Wound left foot, stepped o n nail x today Reason Comments Cough With chest pain, felicitas athing issues x 4 days Reason Comments STD Exposed to same need s tested Care Teams (unrecognized sec tion and content) Hog Slaughterer Relationship Specialty Start Date End Date Giselle Otero MD [address] [place] [address] PCP - General Internal Medicine 05/04/22 Hog Slaughterer Relationship Specialty Start Date End Date Giselle Otero MD [address] [place] [address] PCP - General Internal Medicine 05/04/22 Hog Slaughterer Relationship Specialty Start Date End Date Giselle Otero MD [address] [place] [address] PCP - General Internal Medicine 05/04/22 Hog Slaughterer Relationship Specialty Start Date End Date Giselle Otero MD [address] [place] [address] PCP - General Internal Medicine 05/04/22 Hog Slaughterer Relationship Specialty Start Date End Date Giselle Otero MD [address] [place] [address] PCP - General Internal Medicine 05/04/22 Hog Slaughterer Relationship Specialty Start Date End Date Giselle Otero MD [address] [place] [address] PCP - General Internal Medicine 05/04/22 (unrecognized sect ion and content) No Status Records Found INFORMATION SOURCE (unrecogn ized section and content) FOR RECORDS PERTAINING TO PATIENTS WHO ARE OR HAVE BEEN ENROLLED IN A CHEMICAL DEPENDENCY/SUBSTANCEABUSE PROGRAM, SOME INFORMATION MAY BE OMITTED. This clinical summary was aggregated from multiple sources. Caution should be exercised in using it in the provision of clinical care. This summary normalizes information from multiple sources, and as a consequence, information in this document may materially change the coding, format and clinical context of patient data. In addition, data may be omitted in some cases. CLINICAL DECISIONS SHOULD BE BASED ON THE PRIMARY CLINICAL RECORDS. [facility]. provides no warranty or guarantee of the accuracy or completeness of information in this document.
--- NOTE | 2023-12-18 19:36 | ED.VIS.GI ---
HPI HPI - GI History of Present Illness Chief Complaint: Abd Pain Narrative Narrative: 38-year-old male presenting with right-sided abdominal pain/flank pain. He states it started about 1:00 while he was just sitting. He describes it as a dull ache. 7/10 in severity but the patient states he has a very high pain tolerance. Has not tried anything for pain yet. No history of kidney stones. He is not describing difficulty with finding a position of comfort, dysuria, hematuria. He did have 3 episodes of diarrhea today but he does not have any left-sided abdominal pain. He has not a fever, chills, nausea, vomiting. He states the pain is worsened when he moves or twist his trunk. He denies any injury that he knows of. Patient was seen in urgent care and referred to the ER because of something internal . 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 Smoking Status: Never smoker alcohol intake: never substance use type: does not use ROS ROS ED Constitutional Constitutional ED: Denies chills, fever(s) or sweats Eyes Eyes: Denies blurry vision or change in vision ENT ENT ED: Denies ear pain or sore throat Cardiovascular Cardiovascular: Denies chest pain, palpitations or racing heartbeat Respiratory/Chest Respiratory/Chest: Denies cough, dyspnea or sputum Gastrointestinal Gastrointestinal: Reports abdominal pain and diarrhea; Denies constipation, nausea or vomiting Genitourinary Genitourinary ED: Denies dysuria, hematuria or urinary frequency Musculoskeletal Musculoskeletal: Denies arthralgias, myalgias or neck pain Integumentary Denies abscess, Abrasions or rash Neurologic Neurologic: Denies headache(s), paresthesias or weakness Psychiatric Psychiatric: Denies anxiety, depression, suicidal ideation or suicidal thoughts Endocrine Endocrinology: Denies polydipsia or polyuria EXAM Physical Exam Const Vital Signs: 12/18/23 19:10 12/18/23 19:12 Temperature 96.1 F L 96.1 F L Temperature Source Temporal Temporal Pulse Rate 67 67 Respiratory Rate 16 16 Blood Pressure 155/89 H 155/89 H Blood Pressure Mean 111 111 Pulse Ox 100 100 Oxygen Delivery Method Room Air Room Air Positive well nourished General Appearance ED: NAD; Negative for pallor HEENT Reports moist mucous membranes normocephalic and atraumatic Eyes PERRL and EOMs intact bilaterally Neck no lymphadenopathy Resp normal respiratory effort Cardio regular rate and regular rhythm GI non-tender, non-distended and no masses Back/Spine no CVA tenderness Neuro CN's II-XII intact bilaterally Sensorium / Orientation: alert Motor Exam: strength 5/5 throughout Psych mental status grossly normal Skin no wounds General Skin Exam: Negative for jaundice or pallor MDM MDM MDM Narrative Medical decision making narrative: Patient presenting with right-sided abdominal pain/flank pain. His abdominal exam is benign and I cannot reduce any tenderness. He has no CVA tenderness. He states his pain is 7/10 but only when he is moving which makes this seem to be musculoskeletal. I will obtain a CBC to assess white blood cell count, hemoglobin, platelets. BMP to assess renal function electrolytes. Urinalysis to assess for UTI or occult blood. Differential includes muscle strain, UTI, pyelonephritis, kidney stone. Considered cholecystitis however the patient does not have any right upper quadrant pain nor does he have epigastric pain. Patient medicated with Toradol. He declines antiemetic. CBC is normal. BMP shows creatinine of 1.43 with no recent comparison. LFTs are normal. Urinalysis negative for infection or occult blood. On reevaluation patient is comfortable after Toradol. I recommended follow-up with his PCP to ensure resolution. I do not believe he needs any further lab work or imaging. Return precautions were discussed. Impression: 1. Right flank pain Lab Data Attestation: I reviewed the patient's lab results. Labs: Laboratory Results - last 24 hr 12/18/23 12/18/23 19:47 21:05 WBC 6.9 RBC 5.21 Hgb 14.7 Hct 46.0 MCV 88.3 MCH 28.2 MCHC 32.0 RDW Std Deviation 42.2 RDW Coeff of Gala 13.1 Plt Count 224 MPV 10.1 Immature Gran % (Auto) 0.300 Neut % (Auto) 53.9 Lymph % (Auto) 34.0 [place] % (Auto) 9.1 Eos % (Auto) 2.0 Baso % (Auto) 0.7 Absolute Neuts (auto) 3.7 Absolute Lymphs (auto) 2.33 Nucleated RBC % 0 Sodium 140 Potassium 4.0 Chloride 108 H Carbon Dioxide 30.0 Anion Gap 2 L BUN 16 Creatinine 1.43 H Estim Creat Clear Calc 94.82 Est GFR (MDRD) Af Amer 71 Est GFR (MDRD) Non-Af 59 L BUN/Creatinine Ratio 11.2 Glucose 111 H Calcium 9.2 Total Bilirubin 0.20 AST 19 ALT 40 Alkaline Phosphatase 92 Total Protein 7.5 Albumin 3.6 Globulin 3.9 Albumin/Globulin Ratio 0.9 Urine Color Yellow Urine Clarity Clear Urine pH 6.5 Ur Specific [place] 1.020 Urine Protein 15 H Urine Glucose (UA) Normal Urine Ketones 5 H Urine Occult Blood Negative Urine Nitrite Negative Urine Bilirubin Negative Urine Urobilinogen Normal Ur Leukocyte Esterase Negative Urine RBC 0 SEEN Urine WBC 0-5 SEEN Ur Squamous Epith Cells 0 SEEN Urine Bacteria 0 SEEN Urine Mucus 0 SEEN Discharge Plan Triage Chief Complaint: Abd Pain ED Provider: Kulwant Henderson Dx/Rx/DC Orders Instructions: ED Flank Pain, Uncertain Cause Prescriptions: No Action NK Primary Care Provider: Giselle Milan Referrals: Giselle Milan MD [Primary Care Provider] - Disposition Disposition: Home, Self Care
[2023-12-18] MEDS: Ketorolac 15 MG/ML Vial IV (19:48)
[2023-12-18 19:54] LABS: Bacteria 0 SEEN /hpf (None Seen); Mucous, Urine 0 SEEN /hpf (<or=2+); Red Blood Cells-Urine 0 SEEN /hpf (0-5); Squamous Epithelial Cells - UA 0 SEEN /hpf (0-5)
[2023-12-18 20:05] LABS: Color, Urine Yellow (Yellow); Glucose, Dipstick Normal (Normal); Ketone-Dipstick 5 mg/dl (Negative); Leukocyte Esterase-Dipstick Negative /ul (Negative); Nitrite-Dipstick Negative (Negative); Occult Blood-Urine Negative /ul (Negative); Protein-Dipstick 15 mg/dl (Negative); Urine Bilirubin Dipstick Negative (Negative); Urine Clarity Clear (Clear); Urine Urobilinogen Normal (Normal); Urine pH 6.5 (5.0 - 8.0)
[2023-12-18 20:13] LABS: White Blood Cells 0-5 SEEN /hpf (0-5)
[2023-12-18 21:09] LABS: Absolute Lymphocyte Count 2.33 X10^3/uL (0.83-4.51); Absolute Neutrophil Count 3.7 X10^3/uL (2.0-7.7); Basophil# 0.05 X10^3/uL; Basophil% 0.7 % (0-1); Eosinophil# 0.14 X10^3/uL; Hemoglobin 14.7 g/dL (13.0-16.5); Lymphocyte # 2.33 X10^3/ul (0.83-4.51); Mean Corpuscular Hgb 28.2 pg (27.0-32.0); Mean Corpuscular Volume 88.3 fL (80-94); Mean Platelet Vol. 10.1 fl (6.2-12.0); Monocyte# 0.62 X10^3/uL; Monocyte% 9.1 % (0-10); NRBC Flagged by Analyzer 0 % (0-5); Neutrophil # 3.69 X10^3/uL (2.7-7.7); Neutrophil % 53.9 % (47-70); Platelet Count 224 K/mm3 (150-450); RBC Distribution Width CV 13.1 % (11.6-14.6); RBC Distribution Width SD 42.2 fl (35.1-43.9); Red Blood Count 5.21 M/mm3 (4.6-6.2); White Blood Count 6.9 K/mm3 (4.4-11.0)
[2023-12-18 21:24] LABS: ALB/GLOB Ratio 0.9 RATIO (0.9-2.4); AST(SGOT) 19 U/L (15-37); Alanine Aminotransfer ALT/SGPT 40 U/L (16-61); Albumin, Serum 3.6 g/dL (3.2-5.0); Alkaline Phosphatase 92 U/L (45-117); Anion Gap 2 (5-15); BUN 16 mg/dL (7-18); BUN/Creat Ratio 11.2 RATIO (10-20); Calcium,Total 9.2 mg/dL (8.5-10.1); Chloride 108 mmol/L (98-107); Creatinine, Serum 1.43 mg/dL (0.70-1.30); EST Glomerular Filtration Rate 59 mL/min (>60); Est Glom Filt Rate - Afr Amer 71 mL/min (>60); Estimated Creatinine Clearance 94.82 ml/min; Globulin 3.9 g/dL (2.2-4.2); Glucose 111 mg/dL (74-106); Protein, Total 7.5 g/dL (6.4-8.2); Sodium Level 140 mmol/L (136-145)
[2023-12-18 22:12] VITALS: PULSE 76; RESP 18
== END 2023-12-18 22:14 | disposition home or self-care (01) ==
PROVIDERS: Emergency Provider Student in an Organized Health Care Education/Training Program; PCP Internal Medicine; Visit Provider Student in an Organized Health Care Education/Training Program
DX: R10.9 Unspecified abdominal pain (principal); I10 Essential (primary) hypertension
CPT/HCPCS: 80053; 81001; 85025; 96374; 99284; A4216

== ENCOUNTER → 2024-06-23 | Outpatient (CLI) | payer OTHER, SELFPAY ==
[2024-06-23 15:29] LABS: Absolute Lymphocyte Count 2.29 X10^3/uL (0.83-4.51); Absolute Neutrophil Count 2.9 X10^3/uL (2.0-7.7); Basophil# 0.07 X10^3/uL; Basophil% 1.2 % (0-1); Eosinophil# 0.14 X10^3/uL; Eosinophils% 2.3 % (0-5); Hematocrit 47.9 % (40-54); Hemoglobin 15.6 g/dL (13.0-16.5); Lymphocyte # 2.29 X10^3/ul (0.83-4.51); Lymphocyte % 38.2 % (19-41); Mean Corp Hgb Conc 32.6 g/dL (32-36); Mean Corpuscular Hgb 28.4 pg (27.0-32.0); Mean Corpuscular Volume 87.1 fL (80-94); Mean Platelet Vol. 10.4 fl (6.2-12.0); Monocyte# 0.53 X10^3/uL; Monocyte% 8.8 % (0-10); NRBC Flagged by Analyzer 0 % (0-5); Neutrophil # 2.94 X10^3/uL (2.7-7.7); Platelet Count 251 K/mm3 (150-450); RBC Distribution Width CV 12.9 % (11.6-14.6); RBC Distribution Width SD 41.2 fl (35.1-43.9)
[2024-06-23 16:02] LABS: AST(SGOT) 13 U/L (15-37); Alanine Aminotransfer ALT/SGPT 31 U/L (16-61); Albumin, Serum 3.8 g/dL (3.2-5.0); Alkaline Phosphatase 88 U/L (45-117); Anion Gap 5 (5-15); BUN 12 mg/dL (7-18); BUN/Creat Ratio 9.3 RATIO (10-20); Calcium,Total 8.9 mg/dL (8.5-10.1); Chloride 104 mmol/L (98-107); Cholesterol 194 mg/dL (200); Creatinine, Serum 1.29 mg/dL (0.70-1.30); EST Glomerular Filtration Rate 66 mL/min (>60); Est Glom Filt Rate - Afr Amer 80 mL/min (>60); Glucose 90 mg/dL (74-106); High Density Lipoprotein 38 mg/dL; Potassium 3.8 mmol/L (3.5-5.1); Protein, Total 7.8 g/dL (6.4-8.2); Sodium Level 137 mmol/L (136-145); Triglycerides 176 mg/dL; Very Low Density Lipoprotein 35 mg/dL (5-40)
== END | disposition home or self-care (01) ==
LOC: BIMLAB 13:16
PROVIDERS: PCP Internal Medicine; Referring Provider Physician Assistant; Visit Provider Physician Assistant
DX: Z00.00 Encounter for general adult medical examination without abnormal findings (principal); I10 Essential (primary) hypertension; E66.9 Obesity, unspecified
CPT/HCPCS: 36415; 80053; 80061; 85025

== ENCOUNTER → 2025-03-03 | Outpatient (CLI) | payer OTHER, SELFPAY ==
--- NOTE | 2025-03-03 14:00 | CT_ITS ---
PROCEDURE: ABDOMEN/PELVIS WITH CONTRAST 03/03/2025 REASON FOR EXAM: RULE OUT HERNIA TECHNIQUE: Abdomen and pelvis CT with intravenous contrast. Coronal and Sagittal reconstruction series were provided One or more dose reduction techniques were used (e.g., Automated exposure control, adjustment of the mA and/or kV according to patient size, use of iterative reconstruction technique. COMPARISON: None FINDINGS: Lung bases are clear. Liver, spleen, pancreas and adrenal glands are intact. Gallbladder is satisfactory. No significant biliary ductal dilation. Kidneys enhance symmetrically. No suspicious renal mass, calculi or hydronephrosis. Urinary bladder is decompressed. No bowel obstruction, focal bowel wall thickening or significant perienteric inflammation. Normal appendix. No pelvic free fluid. No free air. No abdominal aortic aneurysm or suspicious adenopathy. Small fat containing left inguinal hernia measuring 11 mm at its neck. Tiny fat containing umbilical hernia. No other hernia defects. No acute osseous abnormality. CT/Abdomen/Pelvis WITH Contrast IMPRESSION: Small fat containing left inguinal hernia. Reading Location: [facility]
== END | disposition home or self-care (01) ==
LOC: CT 13:32
PROVIDERS: PCP Internal Medicine; Referring Provider Physician Assistant; Visit Provider Physician Assistant
DX: K40.90 Unilateral inguinal hernia, without obstruction or gangrene, not specified as recurrent (principal)
CPT/HCPCS: 74177; Q9967

== ENCOUNTER 2025-04-13 07:48 | Day surgery (SDC) | payer OTHER, SELFPAY ==
[2025-04-13] VITALS (10 sets, daily range): BP systolic 103–146; BP diastolic 68–87; PULSE 79–101; RESP 16–18; TEMP 36.1–36.8; O2SAT 94–100; BMI 42.3
[2025-04-13] MEDS: Lactated Ringers 1,000 ML 15 ML IV (08:38)
--- NOTE | 2025-04-13 09:12 | PCM.PRE.AN2 ---
ASA Classification* ASA Classification ASA Classification: 3 (Morbid obesity ) Assessment & Plan Anesthesia* Anesthesia Assessment Anesthesia Assessment: Discussed sedation and/or anesthesia options, risks, benefits, and alternatives with patient/parents/legal guardian/POA. Questions invited. The patient/parents/legal guardian/POA seems to understand and agrees to proceed with anesthesia plan. Reviewed the physical assessment, medical history, allergy history and patient home medications list prior to surgery/procedure/anesthetic and documented any changes. Performed airway and anesthesia risk assessments. Anesthesia Type Anesthesia Type: General History Source History Obtained from:: Patient and Chart Anesthesia Focused Assessment* Temperature: 98.2 F Pulse Rate: 79 Blood Pressure: 131/82 Respiratory Rate: 16 Pulse Ox: 100 Oxygen Delivery Method: Room Air Airway Assessment Mouth opens: >3 cm Mallampati Score: III Teeth Condition: Intact Focused Labs Anesthesia Preop lab: CBC WBC 6.0 K/mm3 (4.4-11.0) 06/23/24 13:16 06/23/24 RBC 5.50 M/mm3 (4.6-6.2) 06/23/24 13:16 06/23/24 Hgb 15.6 g/dL (13.0-16.5) 06/23/24 13:16 06/23/24 Hct 47.9 % (40-54) 06/23/24 13:16 06/23/24 Plt Count 251 K/mm3 (150-450) 06/23/24 13:16 06/23/24 CHEMISTRY Potassium 3.8 mmol/L (3.5-5.1) 06/23/24 13:16 06/23/24 Sodium 137 mmol/L (136-145) 06/23/24 13:16 06/23/24 BUN 12 mg/dL (7-18) 06/23/24 13:16 06/23/24 Creatinine 1.29 mg/dL (0.70-1.30) 06/23/24 13:16 06/23/24 Glucose 90 mg/dL (74-106) 06/23/24 13:16 06/23/24 COAG Pre-Assessment Diagnosis/Proposed Procedure Planned Operative Procedure(s): (L) Lap Robotic Inguinal Hernia left possible bilateral with mesh Anesthesia History 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 When Was Last Pacemaker Check QUESTION #4 FULL TEXT: You/Your Family Experience fever (hyperthermia) with Anesthesia Last Oral Intake Last Oral intake: Last Oral Intake NPO since 21:00 04/13/25 08:35 Meds taken in AM with sips of No 04/13/25 08:35 water? Meds patient instructed to take am of surgery PONV PONV - auxiliary powerplant operator: PONV - auxiliary powerplant operator Female No 04/12/25 11:30 HX of Motion Sickness No 04/12/25 11:30 HX of N/V After Surgery No 04/12/25 11:30 Non-Smoker Yes 04/12/25 11:30 Duration of Surgery greater Yes 04/12/25 11:30 than 60 minutes Number of Risk Factors 2 04/12/25 11:30 PONV Score Moderate Risk 04/12/25 11:30 Height & Weight Height & Weight: Anesthesia: Height & Weight Height 5 ft 9 in 04/13/25 08:35 Weight: 130 kg 04/13/25 08:35 Body Mass Index (BMI) 42.3 04/13/25 08:35 Respiratory Assessment Respiratory Assessment - auxiliary powerplant operator: Respiratory Tract Infection Hx - auxiliary powerplant operator Hx Respiratory Tract Infection No 04/12/25 11:30 STOP Sleep Apnea STOP Sleep Apnea - auxiliary powerplant operator: STOP Sleep Apnea - auxiliary powerplant operator Hx Hypertension No 04/12/25 11:30 Hx Sleep Apnea No 04/12/25 11:30 CPAP BIPAP Do you snore loudly (louder No 04/12/25 11:30 than talking or can be heard Do you often feel tired/ No 04/12/25 11:30 fatigued/ sleepy during daytime? Has anyone observed you stop No 04/12/25 11:30 breathing during sleep? STOP Results Negative 04/12/25 11:30 QUESTION #5 FULL TEXT : Do you snore loudly (louder than talking or can be heard through closed doors)? 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 Specify any problems Hx of Preganancy in last 3 N/A 04/12/25 11:30 Months Nurse Filling Out Transfusion NBUCHER 04/12/25 11:30 & Questions: Date: 04/12/25 04/12/25 11:30 Time: 11:31 04/12/25 11:30 Patient unable to answer at this time (ie. confused, unrespo /Reproduction History /Reproductive History - auxiliary powerplant operator: /Reproductive Hx- auxiliary powerplant operator Hx Now No 04/12/25 11:30 Gestational Age (in weeks): EDC: Hx Hx Para Hx Section SAB No 04/12/25 11:30 Active Medications Active Medications: Current Medications Generic Name Dose Route Start Last Admin Trade Name Freq PRN Reason Stop Dose Admin Cefazolin Sodium 3 gm/ Sodium 115 mls @ 150 mls/hr 04/13/25 09:30 Chloride IV 04/13/25 10:15 INTRAOP ONE Lactated Ringer's 1,000 mls @ 15 mls/hr 04/13/25 08:15 04/13/25 08:38 IV 15 mls/hr .Q48H YRN Administration PFSH Medical History MRSA infection Callus of heel Headache Hypersomnolence Hypertension Skin mole Morbid obesity Hernia Home Medications ?Medication ?Instructions ?Recorded ?Last Taken ?Type NK 12/18/23 Unknown History Allergy/AdvReac Type Severity Reaction Status Date / Time No Known Allergies Allergy Verified 04/13/25 08:34 Family History Grandmother Diabetes maternal Surgical History History of hernia repair (~1989) Social History adopted: No household members: spouse and children number of children: 6 current occupational status: employed 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 Physical Exam Const alert and oriented x3 Resp normal respiratory effort and normal air movement Auscultation: clear to auscultation bilaterally Cardio regular rate and regular rhythm Neuro oriented x3 and moves all extremities
--- NOTE | 2025-04-13 09:22 | PCM.HP.BLA ---
History and Physical Date of Admission: 04/13/25 Intake Vital Signs 03/01/2507:57 03/15/2507:55 Height 5 ft 6 in 5 ft 9 in Weight: 286 lb 288 lb 9 oz BMI 46.1 42.6 BP 128/66 H 129/83 H Blood Pressure Location Rt brachial Rt brachial Position Sitting Sitting Respiration 18 17 Pulse 68 69 Pulse Source Monitor Monitor Temp 96.6 F L 98.2 F Temp Source Temporal Temporal Pulse Oximetry (%) 97 98 Oxygen Delivery Method room air room air Intake Visit Reasons: INGUINAL HERNIA Chief Complaint: inguinal hernia Accompanied by: Is patient in pain?: No Allergies No Known Allergies Allergy (Verified 03/15/25 07:56) Medications ?Medication ?Instructions ?Recorded ?Confirmed ?Type NK 12/18/23 03/15/25 History PFSH Medical History Callus of heel Headache Hypersomnolence Hypertension Skin mole Morbid obesity Hernia Family History Grandmother Diabetes maternal Social History adopted: No household members: spouse and children number of children: 6 current occupational status: employed 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 He had a recent CT scan which showed left inguinal hernia containing fat. He says that since his field trip 3 weeks ago he has been in a lot of pain after doing a lot of walking. He says that even sitting sometimes hurts in his left groin. He had an inguinal hernia repair as a child but does not remember what side. ROS General General: No weight change, appetite, fatigue, colon cancer, breast cancer or weakness HEENT HEENT: No difficulty swallowing, eye injury, eye surgery, swollen glands or hoarseness Endo Endocrine: No thyroid disease, diabetes mellitus, thyroid cancer, Hair loss, heat intolerance or cold intolerance Skin Skin: No rash or changing moles Musc Musculoskeletal: No back problems, arthritis, rheumatoid arthritis, gout or joint pain Cardio Cardiovascular: No murmur, pacemaker, heart disease, atrial fibrillation, high blood pressure, heart attack, heart stent, palpitations, shortness of breath with exertion or chest pain Psych Psychiatric: No depression, anxiety or hearing voices Resp Respiratory: No shortness of breath, No sleep apnea, No cough, No COPD, No asthma, No emphysema and No wheezing Gastro Gastrointestinal: No abdominal pain, No nausea or vomiting, No diarrhea, No constipation, No blood in stool, No acid reflux, No hemorrhoids, No ulcers, No gallbladder problem and No black,tarry stools Jaiden Hematologic: No blood thinners, No blood disorders, No bleeding, No anemia and No blood clots Neuro Neurologic: No numbness, No tingling and No weakness Exam Const General: cooperative Orientation: alert and oriented x3 HENMT Head: normal to inspection Neck Neck: normal visual inspection and full ROM Chest Chest palpation & inspection: normal inspection of the chest Resp Effort & Inspection: normal respiratory effort Auscultation: clear to auscultation bilaterally Cardio Rate: regular rate Rhythm: regular rhythm GI Inspection: non-distended Palpation: soft and nontender Skin General: no rashes or lesions noted Neuro General: patient alert and patient oriented x3 Extrem General: full ROM Psych Appearance: grossly normal Mental Status: mental status grossly normal Assessment and Plan Assessment and Plan (1) Indirect left inguinal hernia: Status: Acute Plan: I was not able to palpate the hernia as it is small. I did review his CT scan with him and he does have a left inguinal hernia containing fat. I discussed robotic assisted laparoscopic inguinal hernia repair with mesh. I discussed the risks including but not limited to bleeding, infection, chronic groin pain, bowel injury, testicular injury or testicular blood supply injury. Patient understands all the risks and is willing to proceed. I also discussed repairing the contralateral side if there is a hernia present he would like that repaired if there is a hernia there. Wili Manrique MD Pager: [facility] [address] [place] [address], [address] [place] [address] Office: I have examined the patient and the H&P has been reviewed. There are no clinical changes since date of exam.
[2025-04-13] MEDS: Cefazolin 3 GM in 0.9% Normal Saline (100mL Bag) 100 ML IV (10:25)
[2025-04-13] MEDS: Bupivacaine Mpf 0.5% 30 ML VIAL (11:10)
--- NOTE | 2025-04-13 11:33 | PCM.POST.ANE ---
Anesthesia: Postop Eval I Current Vital Signs Temperature: 97.4 F Pulse Rate: 101 Blood Pressure: 106/74 Respiratory Rate: 16 Pulse Ox: 99 Oxygen Delivery Method: Room Air Assessment Airway patent: Yes Spontaneous unlabored respirations: Yes Mental status: Awake and Calm nausea: No Vomiting: No Anesthesia Complication: No Fluid Hydration Crystalloid volume administer (ml): 1,000 Total IV fluid infused: 1,000 Progress Note Anesthesia document: Postop Eval 1 completed: Yes
--- NOTE | 2025-04-13 11:36 | OP.PCM_ITS ---
Operative Report (Standard) Operative Information Date of Procedure: 04/13/25 Pre-Operative Diagnosis: Left inguinal hernia Post-Operative Diagnosis: Left inguinal hernia Surgery/Procedure Performed: Robotic assisted laparoscopic left inguinal hernia repair with mesh online user experience strategist: Yes Overhead Line Worker: Thang Crarillo Tasks completed by waiter/waitress first class: Opening and Closing Type of Anesthesia: General/Regional RN Documented Start/Stop Times: Operation Date: 04/13/25 09:30 Case Time Into Pre-Op 04/13/25 08:05 Out of Pre-Op 04/13/25 10:11 Anesthesia Start 04/13/25 10:13 Into Room 04/13/25 10:13 Procedure Start 04/13/25 10:37 Procedure End 04/13/25 11:19 Anesthesia End 04/13/25 11:26 Out of Room 04/13/25 11:26 Into Recovery 04/13/25 11:28 Procedure Start Time: 10:37 Procedure Stop Time: 11:19 Select all DRAINS/GRAFTS/IMPLANTS that apply: Implanted device Implanted device details: ProGrip mesh Estimated Blood Loss: 5 Specimen collected: No Description of surgery: Patient was brought to the operating room and general anesthesia was induced. The abdomen was prepped and draped in usual sterile fashion. A midline incision was made superior to the umbilicus. The fascia was elevated and a Veress needle was placed into the abdomen. A drop test was performed. The abdomen was insufflated 15 mmHg and the Veress needle was removed. A port was placed. The abdomen was inspected for injuries from entry and there were none. The patient was placed in Trendelenburg position and the pelvis was inspected. It did not appear that there were obvious hernias on either side. Under direct visualization an 8 mm port was placed in the right and left lateral abdominal sidewall. The robot was then docked. Using electrocautery scissors an incision was made in the peritoneum in the left lower quadrant. Dissection was carried inferiorly. It was difficult due to prior hernia surgery as a child. After the peritoneum was dissected off the direct and indirect spaces were examined. Patient appeared to have a small defect in the direct area. ProGrip mesh was then unfolded over the hernia defect and unfolded. Next the peritoneum was reapproximated using a running 3 OV lock suture. The mesh completely covered by peritoneum at the end of the case. Next the robot was undocked and the instruments were removed. The ports were removed and the abdomen was allowed to desufflate. The skin incisions were injected with local anesthetic and closed with interrupted 4-0 Monocryl sutures. Steri-Strips and bandages were applied. Scrotum was checked again the case contained both testicles. Patient was brought to PACU in stable condition. Surgical Findings: Left inguinal hernia Complications Complications: No Admit VTE Documentation VTE Mechan Device Prophylaxis: SCD's
--- NOTE | 2025-04-13 11:40 | DCINST_ITS ---
Discharge Instructions Procedure Hernia Diet Discharge Diet: Light diet - advance as tolerated Activity Discharge Activity: May Not Drive (for 2-3 days or while taking narcotic pain meds.) and May Shower (with the bandage in place 1-2 days after surgery.) Lifting Restrictions: 20 pounds for 4 weeks. Additional Activity Instructions:: Climbing stairs is fine, walking is encouraged. Sitting in bed may be uncomfortable. Sitting up using your lateral muscles (sitting up sideways) is usually more comfortable. Do not drive, work heavy equipment of sign legal documents for 24 hours. If your hernia repair was an inguinal repair, you may have scrotal swelling, an ice pack and/or athletic support can provide more comfort. Pain medications may cause nausea, you should typically eat light foods as you take your pain medications. Pain medications may also cause constipation. If you have difficulty with this, discuss with your doctor. Alternate ibuprofen and Tylenol for pain control, oxycodone for breakthrough pain Dressing / Incision Call your doctor if your incision/area has: Continuous Slow Oozing, Sudden Increased Bleeding, Increased Pain/ Swelling, Increased Redness and Foul Smelling Discharge Call your doctor if you observe: Fever of 101 or Higher Suture Line Care: Avoid Pulling/Pushing and Avoid Pinching/Bending Remove Dressing in: 2 days (Remove clear bandages in 2 days, remove Steri-Strips in 7 to 10 days.) Follow Up Care Please Follow Up With: Wili Manrique MD When: Please call to schedule 2 week follow up appointment. [phone] Test Results: Test results from this visit will be discussed in further detail at your follow- up appointment, if applicable. Discharge Plan Admission Attending Provider: Wili Manrique Primary Care Provider: Giselle Milan Instructions Print Language: Upper Sorbian Discharge Orders/Prescriptions Prescriptions: New oxycodone 5 mg Tablet 5 - 10 mg PO Q4H PRN PRN (Reason: Pain Score 4-10) 5 Days Qty: 10 0RF Referrals / Follow Up: Giselle Milan MD [Primary Care Provider] - Disposition Disposition (needs filled in before D/C Order can be placed): Home, Self Care
--- NOTE | 2025-04-13 12:32 | POSTOPAN2_ITS ---
Anesthesia Postop Eval I Sum Postop Eval Completion status Anesthesia document: Postop Eval 1 completed: Yes Anesthesia Postop Eval I Summary Anesthesia Postop Eval I Summary: Anesthesia Postop Eval I: Assessment Summary Airway patent Yes 04/13/25 11:33 LATHE SETUP OPERATOR.GDOTT Spontaneous unlabored Yes 04/13/25 11:33 LATHE SETUP OPERATOR.GDOTT respirations Mental status Awake,Calm 04/13/25 11:33 LATHE SETUP OPERATOR.GDOTT nausea No 04/13/25 11:33 LATHE SETUP OPERATOR.GDOTT Vomiting No 04/13/25 11:33 LATHE SETUP OPERATOR.GDOTT Anesthesia Postop Eval I: Fluid Summary Crystalloid volume administer 1,000 04/13/25 11:33 LATHE SETUP OPERATOR.GDOTT (ml) Colloids volume administered ( ml) Blood Product volume administered (ml) Total IV fluid infused 1,000 04/13/25 11:33 LATHE SETUP OPERATOR.GDOTT Anesthesia Postop Eval I: Summary Notes Anesthesia Complication No 04/13/25 11:33 LATHE SETUP OPERATOR.GDOTT Anesthesia Complication Comment: Post-operative progress note Anesthesia: Postop Eval II Evaluation Mental status: Awake and Calm Pain Level: 1 nausea: No Vomiting: No Complications Anesthesia Complication: No
--- NOTE | 2025-04-13 12:32 | POSTOPAN2_ITS ---
Anesthesia Postop Eval I Sum Postop Eval Completion status Anesthesia document: Postop Eval 1 completed: Yes Anesthesia Postop Eval I Summary Anesthesia Postop Eval I Summary: Anesthesia Postop Eval I: Assessment Summary Airway patent Yes 04/13/25 11:33 CONCESSION MANAGER.GDOTT Spontaneous unlabored Yes 04/13/25 11:33 CONCESSION MANAGER.GDOTT respirations Mental status Awake,Calm 04/13/25 11:33 CONCESSION MANAGER.GDOTT nausea No 04/13/25 11:33 CONCESSION MANAGER.GDOTT Vomiting No 04/13/25 11:33 CONCESSION MANAGER.GDOTT Anesthesia Postop Eval I: Fluid Summary Crystalloid volume administer 1,000 04/13/25 11:33 CONCESSION MANAGER.GDOTT (ml) Colloids volume administered ( ml) Blood Product volume administered (ml) Total IV fluid infused 1,000 04/13/25 11:33 CONCESSION MANAGER.GDOTT Anesthesia Postop Eval I: Summary Notes Anesthesia Complication No 04/13/25 11:33 CONCESSION MANAGER.GDOTT Anesthesia Complication Comment: Post-operative progress note Anesthesia: Postop Eval II Evaluation Mental status: Awake and Calm Pain Level: 2 nausea: No Vomiting: No Complications Anesthesia Complication: No
--- NOTE | 2025-04-13 12:32 | PCM.POSTANE2 ---
Anesthesia Postop Eval I Sum Postop Eval Completion status Anesthesia document: Postop Eval 1 completed: Yes Anesthesia Postop Eval I Summary Anesthesia Postop Eval I Summary: Anesthesia Postop Eval I: Assessment Summary Airway patent Yes 04/13/25 11:33 FRAME TENDER.GDOTT Spontaneous unlabored Yes 04/13/25 11:33 FRAME TENDER.GDOTT respirations Mental status Awake,Calm 04/13/25 11:33 FRAME TENDER.GDOTT nausea No 04/13/25 11:33 FRAME TENDER.GDOTT Vomiting No 04/13/25 11:33 FRAME TENDER.GDOTT Anesthesia Postop Eval I: Fluid Summary Crystalloid volume administer 1,000 04/13/25 11:33 FRAME TENDER.GDOTT (ml) Colloids volume administered ( ml) Blood Product volume administered (ml) Total IV fluid infused 1,000 04/13/25 11:33 FRAME TENDER.GDOTT Anesthesia Postop Eval I: Summary Notes Anesthesia Complication No 04/13/25 11:33 FRAME TENDER.GDOTT Anesthesia Complication Comment: Post-operative progress note Anesthesia: Postop Eval II Evaluation Mental status: Awake and Calm Pain Level: 2 nausea: No Vomiting: No Complications Anesthesia Complication: No
--- NOTE | 2025-04-13 12:32 | PCM.POSTANE2 ---
Anesthesia Postop Eval I Sum Postop Eval Completion status Anesthesia document: Postop Eval 1 completed: Yes Anesthesia Postop Eval I Summary Anesthesia Postop Eval I Summary: Anesthesia Postop Eval I: Assessment Summary Airway patent Yes 04/13/25 11:33 PUBLIC RELATIONS COORDINATOR.GDOTT Spontaneous unlabored Yes 04/13/25 11:33 PUBLIC RELATIONS COORDINATOR.GDOTT respirations Mental status Awake,Calm 04/13/25 11:33 PUBLIC RELATIONS COORDINATOR.GDOTT nausea No 04/13/25 11:33 PUBLIC RELATIONS COORDINATOR.GDOTT Vomiting No 04/13/25 11:33 PUBLIC RELATIONS COORDINATOR.GDOTT Anesthesia Postop Eval I: Fluid Summary Crystalloid volume administer 1,000 04/13/25 11:33 PUBLIC RELATIONS COORDINATOR.GDOTT (ml) Colloids volume administered ( ml) Blood Product volume administered (ml) Total IV fluid infused 1,000 04/13/25 11:33 PUBLIC RELATIONS COORDINATOR.GDOTT Anesthesia Postop Eval I: Summary Notes Anesthesia Complication No 04/13/25 11:33 PUBLIC RELATIONS COORDINATOR.GDOTT Anesthesia Complication Comment: Post-operative progress note Anesthesia: Postop Eval II Evaluation Mental status: Awake and Calm Pain Level: 1 nausea: No Vomiting: No Complications Anesthesia Complication: No
[2025-04-13] MEDS: Acetaminophen 325 MG Tablet 650 MG PO (12:37)
== END 2025-04-13 13:24 | disposition home or self-care (01) ==
LOC: SDC 07:51 → AC 07:51
PROVIDERS: PCP Internal Medicine; Referring Provider Surgery; Visit Provider Surgery
PROC: 0YQ64ZZ Repair Left Inguinal Region, Percutaneous Endoscopic Approach (ICD-10-PCS; CPT 49651; principal; 2025-04-13 09:10)
DX: K40.91 Unilateral inguinal hernia, without obstruction or gangrene, recurrent (principal); I10 Essential (primary) hypertension
CPT/HCPCS: 49651; S2900; 00840; C1781; J2405